=== PATIENT | female | born 1955 | race Caucasian/White ===

== ENCOUNTER → 2019-11-21 | Day surgery (SDC) | payer OTHER ==
[~2019-11-21] MED LIST: ALLOPURINOL300 MG PO; ASPIRIN; CLARITIN; DICLOFENAC; FENTANYL CITRATE/PF 100MCG/2 ML INJ ONE; FLUTICASONE P15.8 ML; FUROSEMIDE; FUROSEMIDE40 MG PO; HYDROXYZINE HCL25 MG PO; LEVOTHYROXINE; LISINOPRIL/HCTZ; METFORMIN; MIDAZOLAM HCL 2 MG/2 ML VIAL ONE; MODAFINIL200 MG PO; NEXIUM PO; OR PHACO EYE KIT ONE; POTASSIUM CHLO20 ME1 PO; PRAMIPEXOLE D0.25 MG PO; PRAVASTATIN; PREOP PHACO EYE KIT ONE; SERTRALINE HCL50 MG PO; SPIRONOLACTONE25 MG PO; SYNTHROID100 MCG PO
--- OUTSIDE RECORDS SUMMARY | 2019-11-21 09:29 | XMS REPORT ---
Author Author [facility] Address Unknown Phone Unavailable Care Team Providers Care Ivory Polisher Name Role Phone Unavailable Unavailable Problems This patient has no known problems. Allergies, Adverse Reactions, Alerts This patient has no known allergies or adverse reactions. Medications This patient has no known medications. Encounters Start Date/Time End Date/Time Encounter Type Admission Type Attending Clinicians Care Facility Care Department Encounter ID 2019-03-30 09:54:00 2019-03-30 09:54:00 Outpatient [id number] Results Test Description Test Time Test Comments Text Results Atomic Results Result Comments SCR MAMM BILATERAL SANDEEP CAD DIGITAL 2018-09-29 08:38:52 - SCR MAMM BILATERAL SANDEEP CAD DIGITALBILATERAL DIGITAL SCREENING MAMMOGRAM 3D/2D WITH CAD: 09/29/2018CLINICAL: Asymptomatic. Digital breast tomosynthesis was performed in addition to routine CC and MLO views. Current mammographic images were evaluated by either a Gigit M-Vu or a [employer] ImageChecker CAD (computer aided detection system). Comparison is made to exams dated 05/10/2017 mammogram, 2015 mammogram, 04/26/2015 mammogram, 04/23/2014 mammogram, and 04/21/2013 mammogram - [facility]-. There are scattered fibroglandular tissues in both breasts. There are benign calcifications and vascular calcification in both breasts. No suspicious mass, architectural distortion, malignant type calcification, or lymph node abnormality detected. Breast architecture is stable compared to prior exams.IMPRESSION: BENIGNThere is no mammographic evidence of malignancy. Resume annual screening mammography in one year. Aman Fiore M.D. rb/:09/29/2018 08:38:52 Hotel [facility] Dining Room Cashier: Shady STEIN, [facility]-FWletter sent: BIRADS 1-2 Normal Mammogram BI-RADS: 2 Benign
--- OUTSIDE RECORDS SUMMARY | 2019-11-21 09:30 | XMS REPORT ---
Author Author Admin, [place] Organization Unknown Address Unknown Phone Unavailable PROBLEMS Condition Status Date Provider Notes Chronic cough active Gregoria Burr on sertraline BMI 34.0-34.9 active Gregoria Burr Obesity active Gregoria Burr hospital follow up active Gregoria Burr Bitten by dog, subsequent encounter active Gregoria Burr DJD, lumbar spine active Gregoria Burr Osteopenia active Gregoria Burr Hypertension active Gregoria Burr Hyperlipidemia active Gregoria Burr Asthma active Gregoria Burr Vitamin D deficiency active Gregoria Burr HLA B27 antigen positive active Gregoria Burr JALEESA positive active Gregoria Burr Foot pain, chronic active Gregoria Burr Low potassium level active Gregoria Burr Gastric bypass active Gregoria Burr Sleep apnea active Gregoria Burr Narcolepsy active Gregoria Burr Acid reflux active Gregoria Burr Hypothyroid active Gregoria Burr Gout active Gregoria Burr Restless leg syndrome active Gregoria Burr Rheumatoid arthritis, chronic active Gregoria Burr Establish care or get acquainted visit active Gregoria Burr Neuropathy active Gregoria Burr Hypertension active Gregoria Burr CKD active Gregoria Burr Restless leg syndrome completed - Gregoria Burr Peripheral edema active Gregoria Burr ENCOUNTERS Date Type Provider Location Encounter Diagnosis - Ambulatory Encounter Gregoria Burr [facility] [place] - Ambulatory Encounter Gregoria Burr [facility] [place] - Ambulatory Encounter Peyton Extra Hours [facility] Services UNK - Ambulatory Encounter Peyton Extra Hours [facility] Services UNK - Ambulatory Encounter Peyton Extra Hours [facility] Services UNK - Ambulatory Encounter Gregoria Olivia [facility] [place] - Ambulatory Encounter [facility] Care Coordination Desktop Ananda Finch [facility] Contact Center UNK - Ambulatory Encounter Ananda Wetzel [facility] UNK - Ambulatory Encounter Gregoria Burr [employer] [facility] [place] - Ambulatory Encounter Gregoria Burr [facility] [place] - Ambulatory Encounter Gregoria Olivia [facility] Peripheral edemaRestless leg syndromeCKDHypertensionNeuropathyEstablish care or get acquainted visitRheumatoid arthritis, chronicRestless leg syndromeGoutHypothyroidAcid refluxNarcolepsySleep apneaGastric bypassLow potassium levelFoot pain, chronicANA positiveHLA B27 antigen positiveVitamin D deficiencyAsthmaHyperlipidemiaHypertensionOsteopeniaDJD, lumbar spineBitten by dog, subsequent encounterhospital follow upObesityBMI 34.0-34.9Chronic cough VITAL SIGNS No Information Available ALLERGIES Allergy Name Onset Date Reaction Criticality Status TINDAMAX High Criticality active MORPHINE High Criticality active CODEINE High Criticality active REASON FOR REFERRAL No Information Available RESULTS No Information Available HISTORY OF IMMUNIZATIONS Date Vaccine Dose Lot Number Status Shingrix IM [id number] completed Pneumovax 23 IM/SQ [id number] completed completed completed completed HISTORY OF MEDICATION USE Medication Instructions Dates Provider Comments [employer] DAKOTAH TEST IN VITRO STRIP use as directed Gregoria Burr [employer] DAKOTAH SYSTEM W/DEVICE KIT dispense 1 kit Gregoria Burr NYSTATIN 943958 UNIT/ML MOUTH/THROAT SUSPENSION 400,000 units of the oral suspension orally 4 times a day Gregoria Burr NEXIUM 40 MG ORAL CAPSULE DELAYED RELEASE 1 capsule daily as needed Gregoria Burr METRONIDAZOLE 500 MG ORAL TABLET 1 tab by mouth twice a day for 7 days Gregoria Burr SERTRALINE HCL 50 MG ORAL TABLET 1 tablet daily Gregoria Burr FLUCONAZOLE 150 MG ORAL TABLET 1 tablet once Gregoria Burr LINEZOLID 600 MG ORAL TABLET BID Gregoria Burr CEPHALEXIN 500 MG ORAL CAPSULE 1 cap by mouth QID times a day Gregoria Burr CELECOXIB 200 MG ORAL CAPSULE 1 tablet daily prn Gregoria Burr TRAMADOL-ACETAMINOPHEN 37.5-325 MG ORAL TABLET once daily prn Gregoria Burr CYCLOBENZAPRINE HCL 7.5 MG ORAL TABLET 1 tablet BID As Needed Gregoria Burr ADVAIR DISKUS 250-50 MCG/DOSE INHALATION AEROSOL POWDER BREATH ACTIVATED 1 inhalation BID Gregoria Burr PRAMIPEXOLE DIHYDROCHLORIDE 0.25 MG ORAL TABLET 1 tablet at 5p and 1 tablet at bedtime Gregoria Burr PANTOPRAZOLE SODIUM 40 MG ORAL TABLET DELAYED RELEASE 1 tablet daily Gregoria Burr MODAFINIL 200 MG ORAL TABLET 1 tablet BID Gregoria Burr FLUTICASONE PROPIONATE 50 MCG/ACT NASAL SUSPENSION 1-2 sprays once-BID Gregoria Burr HYDROXYZINE HCL 25 MG ORAL TABLET 2 pills 3x/day as needed Gregoria Burr ALLOPURINOL 300 MG ORAL TABLET 1 tablet daily Gregoria Burr POTASSIUM CHLORIDE ER 20 MEQ ORAL TABLET EXTENDED RELEASE 1 tablet once daily Gregoria Burr SPIRONOLACTONE 25 MG ORAL TABLET 1 tablet BID Gregoria Burr HYDROCHLOROTHIAZIDE 25 MG ORAL TABLET 1 tablet daily as needed Gregoria Burr FUROSEMIDE 20 MG ORAL TABLET 1 tablet at bedtime Gregoria Burr FUROSEMIDE 40 MG ORAL TABLET 1 tab daily Gregoria Burr SYNTHROID 100 MCG ORAL TABLET 1 by mouth every day Gregoria Burr SOCIAL HISTORY Date Observation Value Provider time of call 08/31/2019 4:52 PM Erica Finch time of call 08/30/2019 3:57 PM Amanda Wetzel social history E&M . Not homeless. Born in [facility]. City: [place]. Not employed. Unemployed. Sexual orientation: Heterosexual. Gender identity: Female. Sexually Active: No. Gregoria Burr " social history reviewed E&M reviewed today Gregoria Burr " drug use, illicit Never Charese Corwin " alcohol use, frequency holidays/special occasions only Charese Corwin " alcohol use Currently Charese Corwin " Occupation #1 Unemployed Charese Corwin " patient considered to be homeless No Charese Corwin " sexual orientation Heterosexual Charese Corwin " is there any chance that you could be ? No Charese Corwin " passive cigarette smoke exposure No Charese Corwin " smoking status never smoker Charese Corwin FUNCTIONAL STATUS No Information Available MENTAL STATUS Date Observation Value Provider assessment of judgment and insight E&M intact Gregoria Burr " mental status examination: orientation E&M oriented to time, place, and person Gregoria Burr " assessment of mood and affect E&M no depression, anxiety, or agitation Gregoria Burr " Generalized Anxiety Disorder Questionnaire - Question 1 3 Charese Corwin " Generalized Anxiety Disorder Questionnaire - Question 2 3 Charese Corwin MEDICAL EQUIPMENT No Information Available FAMILY HISTORY No Information Available INSURANCE PROVIDERS No Information Available ADVANCE DIRECTIVES No Information Available TREATMENT PLAN Date Name New Patient Comprehensive - [id number] HISTORY OF PROCEDURES No Information Available GOALS No Information Available HEALTH CONCERNS No Information Available
--- OUTSIDE RECORDS SUMMARY | 2019-11-21 09:30 | XMS REPORT ---
Author Author Admin, [place] Organization Unknown Address Unknown Phone Unavailable PROBLEMS [...] Provider Location Encounter Diagnosis - Ambulatory Encounter Ananda Olivia [facility] [place] - Ambulatory Encounter [facility] Care Coordination Hui Finch [facility] Contact [facility] UNK - Ambulatory Encounter Chelsyberenice Corwindarci [place] Wetzel [facility] UNK - Ambulatory Encounter Gregoria Burr [employer] [facility] [place] - Ambulatory Encounter Gregoria Burr [facility] [place] - Ambulatory Encounter Gregoria Malave [facility] Adult Medicine Peripheral edemaRestless leg syndromeCKDHypertensionNeuropathyEstablish care [...] Vaccine Dose Lot Number Status Shingrix IM [id number] completed Pneumovax 23 IM/SQ [id number] completed completed completed completed HISTORY OF MEDICATION USE Medication Instructions Dates Provider Comments METRONIDAZOLE 500 MG ORAL TABLET 1 tab [...] history E&M . Not homeless. Born in [facility]. City: [place]. Not employed. Unemployed. Sexual orientation: Heterosexual. Gender identity: Female. Sexually Active: No. Gregoria Burr " social history reviewed E&M reviewed today Gregoria Burr " drug use, illicit Never Ananda Olivia " alcohol use, frequency holidays/special occasions only Ananda Olivia " alcohol use Currently Ananda Corwin " Occupation #1 Unemployed Charese Corwin " patient considered to be homeless No Ananda Corwin " sexual orientation Heterosexual Ananda Corwin " is there any chance that you could be ? No Ananda Corwin " passive cigarette smoke exposure No Ananda Corwin " smoking status never smoker Ananda Corwin FUNCTIONAL STATUS No Information Available MENTAL [...] Anxiety Disorder Questionnaire - Question 2 3 Charberenice Corwin MEDICAL EQUIPMENT No Information Available FAMILY HISTORY No Information Available INSURANCE PROVIDERS No Information Available ADVANCE DIRECTIVES No Information Available TREATMENT PLAN Date Name New Patient Comprehensive - [id number] HISTORY OF PROCEDURES No Information Available GOALS No Information Available HEALTH CONCERNS No Information Available
--- OUTSIDE RECORDS SUMMARY | 2019-11-21 09:30 | XMS REPORT ---
Author Author Admin, [place] Organization Unknown Address Unknown Phone Unavailable PROBLEMS Condition Status Date Provider Notes Chronic cough active Gregoria Burr on sertraline BMI 34.0-34.9 active Gregoria Burr Obesity active Gregorai Burr hospital follow up active Gregoria Burr [...] Encounter Diagnosis - Ambulatory Encounter Gregoria Burr [facility] [place] [facility] [place] - Ambulatory Encounter Gregoria Valentinoberenice Corwin [facility] Peripheral edemaRestless leg syndromeCKDHypertensionNeuropathyEstablish care [...] Vaccine Dose Lot Number Status Shingrix IM [id number] completed Pneumovax 23 IM/SQ [id number] completed completed completed completed HISTORY OF MEDICATION [...] Burr SOCIAL HISTORY Date Observation Value Provider social history E&M . Not homeless. Born in [facility]. City: [place]. Not employed. Unemployed. Sexual orientation: Heterosexual. Gender [...] Anxiety Disorder Questionnaire - Question 1 3 Ananda Corwin " Generalized Anxiety Disorder Questionnaire - Question 2 3 Ananda Olivia MEDICAL EQUIPMENT No Information Available FAMILY HISTORY No Information Available INSURANCE PROVIDERS No Information Available ADVANCE DIRECTIVES No Information Available TREATMENT PLAN Date Name New Patient Comprehensive - [id number] HISTORY OF PROCEDURES No Information Available GOALS No Information Available HEALTH CONCERNS No Information Available
--- OUTSIDE RECORDS SUMMARY | 2019-11-21 09:30 | XMS REPORT ---
Author Author Admin, [place] Organization Unknown Address Unknown Phone Unavailable PROBLEMS [...] Encounter Diagnosis - Ambulatory Encounter Gregoria Burr [employer] [facility] [place] - Ambulatory Encounter Gregoria Burr [facility] [place] - Ambulatory Encounter Gregoria Olivia [facility] Peripheral edemaRestless leg syndromeCKDHypertensionNeuropathyEstablish care [...] Vaccine Dose Lot Number Status Shingrix IM [id number] completed Pneumovax 23 IM/SQ [id number] completed completed completed completed HISTORY OF MEDICATION [...] history E&M . Not homeless. Born in [facility]. City: [place]. Not employed. Unemployed. Sexual orientation: Heterosexual. Gender [...] Charese Corwin " smoking status never smoker Aannda Olivia FUNCTIONAL STATUS No Information Available MENTAL STATUS Date Observation Value Provider assessment of judgment and insight E&M intact Gregoria Burr " mental status examination: orientation E&M oriented to time, place, and person Gregoria Burr " assessment of mood and affect E&M no depression, anxiety, or agitation Gregoria Burr " Generalized Anxiety Disorder Questionnaire - Question 1 3 Ananda Olivia " Generalized Anxiety Disorder Questionnaire - Question 2 3 Chelsyberenice Hernandezry MEDICAL EQUIPMENT No Information Available FAMILY HISTORY No Information Available INSURANCE PROVIDERS No Information Available ADVANCE DIRECTIVES No Information Available TREATMENT PLAN Date Name New Patient Comprehensive - [id number] HISTORY OF PROCEDURES No Information Available GOALS No Information Available HEALTH CONCERNS No Information Available
--- OUTSIDE RECORDS SUMMARY | 2019-11-21 09:30 | XMS REPORT ---
Author Author Admin, [place] Organization Unknown Address Unknown Phone Unavailable PROBLEMS [...] Provider Location Encounter Diagnosis - Ambulatory Encounter Peyton Extra Hours [facility] Services UNK - Ambulatory Encounter [facility]ey[facility] Extra Hours [facility] Services UNK - Ambulatory Encounter [facility] UNK - Ambulatory Encounter Gregoria Olivia [facility] [place] - Ambulatory En[place] [facility] [place] Coord[place] Desktop Ananda Finch [facility] Contact Center UNK - Ambulatory Encounter Ananda Wetzel [facility] UNK - [facility] En[facility] Gregoria Burr [facility] [place] - Ambulatory Encounter Gregoria Olivia [facility] Peripheral edemaRestless leg syndromeCKDHypertensionNeuropathyEstablish care [...] Vaccine Dose Lot Number Status Shingrix IM [id number] completed Pneumovax 23 IM/SQ [id number] completed completed completed completed HISTORY OF MEDICATION USE Medication Instructions Dates Provider Comments [employer] DAKOTAH TEST IN VITRO STRIP use as directed Gregoria Burr [employer] DAKOTAH SYSTEM W/DEVICE KIT dispense 1 kit Gregoria Burr NYSTATIN 135200 UNIT/ML MOUTH/THROAT SUSPENSION 03789 units By Mouth q6h prn Gregoria Burr NEXIUM 40 MG ORAL CAPSULE [...] 50 MCG/ACT NASAL SUSPENSION 1-2 sprays once-BID Gregorai Burr HYDROXYZINE HCL 25 MG ORAL TABLET [...] homeless. Born in [facility]. City: [place]. Not employed. Unemployed. Sexual orientation: Heterosexual. Gender [...] PLAN Date Name New Patient Comprehensive - [id number] HISTORY OF PROCEDURES No Information Available GOALS No Information Available HEALTH CONCERNS No Information Available
--- OUTSIDE RECORDS SUMMARY | 2019-11-21 09:30 | XMS REPORT ---
Author Author Admin, [place] Organization Unknown Address Unknown Phone Unavailable PROBLEMS [...] Diagnosis - Ambulatory Encounter Peyton Extra Hours [facility] UNK - Ambulatory Encounter Peyton Extra Hours [facility] UNK - Ambulatory Encounter [facility]ey[facility] Extra Hours [facility] UNK - Ambulatory Encounter Gregoria Olivia [facility] UNK - Ambulatory Encounter [facility] Care Coordination Desktop Erica Finch [facility] Contact Center UNK - Ambulatory Encounter Ananda Wetzel [facility] UNK - Ambulatory Encounter Gregoria Burr [employer] [facility] Adult Medicine UNK - Ambulatory Encounter Gregoria Burr [facility] UNK - Ambulatory Encounter Gregoria Olivia [facility] Peripheral edemaRestless leg syndromeCKDHypertensionNeuropathyEstablish care [...] Vaccine Dose Lot Number Status Shingrix IM [id number] completed Pneumovax 23 IM/SQ [id number] completed completed completed completed HISTORY OF MEDICATION USE Medication Instructions Dates Provider Comments [employer] DAKOTAH TEST IN VITRO STRIP use as directed Gregoria Burr [employer] DAKOTAH SYSTEM W/DEVICE KIT dispense 1 kit Gregoria Burr NYSTATIN 263663 UNIT/ML MOUTH/THROAT SUSPENSION 60881 units By Mouth q6h prn Gregoria Burr [...] Provider time of call 08/31/2019 4:52 PM Ericakimmy Finch time of call 08/30/2019 3:57 PM Amanda Wetzel social history E&M . Not homeless. Born in [facility]. City: [place]. Not employed. Unemployed. Sexual orientation: Heterosexual. Gender [...] PLAN Date Name New Patient Comprehensive - [id number] HISTORY OF PROCEDURES No Information Available GOALS No Information Available HEALTH CONCERNS No Information Available
--- OUTSIDE RECORDS SUMMARY | 2019-11-21 09:31 | XMS REPORT ---
Author Author Admin, [place] Organization Unknown Address Unknown Phone Unavailable PROBLEMS Condition Status Date Provider Notes HSV active Gregoria Burr Vaginal discharge active Gregoria Burr Screening for anemia active Gregoria Burr Screening for lipid disorder active Gregoria Burr Screening, diabetes mellitus active Gregoria Burr Screening for breast cancer active Gregoria Burr Screening for breast cancer active Gregoria Burr Screening, cervical cancer active Gregoria Burr Well adult active Gregoria Burr Chronic cough active Gregoria Burr on sertraline [...] Encounter Diagnosis - Ambulatory Encounter Gregoria Burr [facility] [place] Medicine UNK - Ambulatory Encounter Gregoria Burr [facility] Adult Medicine UNK - Ambulatory Encounter Gregoria Burr [facility] Adult Medicine UNK - Ambulatory Encounter Gregoria Malave Corwin [facility] [place] Medicine Screening, diabetes mellitusScreening for lipid disorderScreening for anemiaVaginal dischargeHSV - Ambulatory Encounter Gregoria Malave Corwin [facility] Adult Medicine Well adultScreening, cervical cancerScreening for breast cancerScreening for breast cancer - Ambulatory Encounter Gregoria Burr [facility] Adult Medicine UNK - Ambulatory Encounter Gregroia Burr [facility] Adult Medicine UNK - Ambulatory Encounter Gregoria Burr [facility] Adult Medicine UNK - Ambulatory Encounter Gregoria Burr [facility] UNK - Ambulatory Encounter Gregoria Burr [facility] Adult Medicine UNK - Ambulatory Encounter Gregoria Burr [facility] UNK - Ambulatory Encounter Gregoria Burr [facility] UNK - Ambulatory Encounter Gregoria Burr [facility] Adult Medicine UNK - Ambulatory Encounter Gregoria Burr [facility] Adult Medicine UNK - Ambulatory Encounter Peyton Extra Hours [facility] UNK - Ambulatory Encounter [place]ey[place] Extra Hours [facility] UNK - Ambulatory Encounter [place]ey[place] Extra Hours [facility] UNK - Ambulatory Encounter Gregoria Olivia [facility] Adult Medicine UNK - Ambulatory Encounter [facility] Care Coordination Desestephaniaop Ananda Finch [facility] UNK - Ambulatory Encounter Ananda Wetzel [facility] UNK - Ambulatory Encounter Gregoria Burr [facility] Adult Medicine UNK - Ambulatory Encounter Gregoria Burr [facility] Adult Medicine UNK - Ambulatory Encounter Gregoria Malave Corwin [facility] Adult Medicine Peripheral edemaRestless leg syndromeCKDHypertensionNeuropathyEstablish care [...] CODEINE High Criticality active REASON FOR REFERRAL Start Date - End Date Service - Mammogram - Screening RESULTS Date Observation Value Provider Reference Range Interpretation Location uric acid, serum 4.2 mg/dL [facility] 2.5-7.1 " thyroid stimulating hormone, serum 2.890 u[iU]/mL [facility] 0.450-4.500 " vitamin D 25-hydroxy, serum 29.5 ng/mL [facility] 30.0-100.0 Low " hemoglobin A1C, blood, as % of total hemoglobin 5.7 % [facility] 4.8-5.6 High " LDL cholesterol, serum 125 mg/dL [facility] 0-99 High " very low density lipoproteins 9 mg/dL [facility] 5-40 " HDL cholesterol, serum 109 mg/dL [facility] >39 " triglyceride, serum, fasting 44 mg/dL [facility] 0-149 " cholesterol, serum 243 mg/dL [facility] 100-199 High " alanine aminotransferase (SGPT), serum 20 1/L [facility] 0-32 " aspartate aminotransferase (SGOT), serum 25 1/L [facility] 0-40 " alkaline phosphatase, serum 167 1/L [facility] 39-117 High " bilirubin, serum, total 0.4 mg/dL [facility] 0.0-1.2 " albumin/globulin ratio, serum 1.7 [facility] 1.2-2.2 " globulin, serum 2.6 [facility] 1.5-4.5 " albumin, serum 4.3 g/dL [facility] 3.6-4.8 " protein, total, serum 6.9 g/dL [facility] 6.0-8.5 " calcium, serum 9.4 mg/dL [facility] 8.7-10.3 " carbon dioxide, venous blood 23 mmol/L [facility] 20-29 " chloride, serum 99 mmol/L [facility] 96-106 " potassium, serum 4.3 mmol/L [facility] 3.5-5.2 " sodium, serum 141 mmol/L [facility] 134-144 " urea nitrogen/creatinine ratio, serum 22 [facility] 12-28 " eGFR if 72 mL/min/((173/100).m2) [facility] >59 " Estimated Glomerular Filtration Rate (calc) 63 mL/min/((173/100).m2) [facility] >59 " creatinine, serum 0.97 mg/dL [facility] 0.57-1.00 " urea nitrogen, blood 21 mg/dL [facility] 8-27 " blood glucose, random 106 mg/dL [facility] 65-99 High " immature granulocytes, percentage of total cells, blood 0 % [facility] Not Estab. " basophil count, absolute 0.0 x10E3/uL [facility] 0.0-0.2 " Eosinophil Absolute Count 0.2 X10E3/UL [facility] 0.0-0.4 " monocyte count, blood, automated 0.3 X10E3/UL [facility] 0.1-0.9 " lymphocyte count, blood, automated 1.5 X10E3/UL [facility] 0.7-3.1 " Absolute Neutrophils 2.5 X10E3/UL [facility] 1.4-7.0 " basophils as percent of blood leukocytes 0 % [facility] Not Estab. " eosinophils as percent of blood leukocytes 4 % [facility] Not Estab. " monocytes as percent of blood leukocytes 6 % [facility] Not Estab. " lymphocytes as percent of blood leukocytes 33 % [facility] Not Estab. " neutrophils as percent of blood leukocytes 57 % [facility] Not Estab. " platelet count 220 X10E3/UL [facility] 150-450 " red blood cell distribution width 13.7 % [facility] 12.3-15.4 " mean corpuscular hemoglobin concentration, RBC 33.8 G/DL [facility] 31.5-35.7 " mean corpuscular hemoglobin, RBC 31.2 pg [facility] 26.6-33.0 " mean corpuscular volume, RBC 92 fL [facility] 79-97 " hematocrit, blood 38.2 % [facility] 34.0-46.6 " hemoglobin, blood 12.9 g/dL [facility] 11.1-15.9 " erythrocyte (RBC) count 4.14 X10E6/UL [facility] 3.77-5.28 " leukocyte count, blood 4.5 X10E3/UL [facility] 3.4-10.8 HISTORY OF IMMUNIZATIONS Date Vaccine Dose Lot Number Status Shingrix IM [id number] completed Pneumovax 23 IM/SQ [id number] completed completed completed completed HISTORY OF MEDICATION USE Medication Instructions Dates Provider Comments ACYCLOVIR 5 % EXTERNAL CREAM apply to affected area twice or three times a day Gregoria Burr [employer] DAKOTAH TEST IN VITRO STRIP use as directed Gregoria Burr [employer] PRECISION DAKOTAH SYSTEM W/DEVICE KIT dispense 1 kit Gregoria Burr NYSTATIN 588034 UNIT/ML MOUTH/THROAT SUSPENSION 400,000 units of the [...] CAPSULE 1 tablet daily prn Gregoria Burr TRAMADOL HCL 50 MG ORAL TABLET 1 tab every 6-8 hours as needed for pain Gregoria Burr CYCLOBENZAPRINE HCL 7.5 MG ORAL [...] Burr SOCIAL HISTORY Date Observation Value Provider " drug use, illicit Never Charese Corwin " alcohol use Currently Charese Corwin " sexual orientation Heterosexual Charese Corwin " is there any chance that you could be ? No Charese Corwin " passive cigarette smoke exposure No Charese Corwin " smoking status never smoker Charese Corwin " social history E&M . Not homeless. Born in [facility]. City: [place]. Not employed. Unemployed. Sexual orientation: Heterosexual. Gender identity: Female. Sexually Active: No. Gregoria Burr " social history reviewed E&M reviewed today Gregoria Burr time of call 08/31/2019 4:52 PM Erica Finch time of call 08/30/2019 3:57 PM Amanda Wetzel social history E&M . Not homeless. Born in [facility]. City: [place]. Not employed. Unemployed. Sexual orientation: Heterosexual. Gender [...] that you could be ? No Ananda Olivia " passive cigarette smoke exposure No Ananda Olivia " smoking status never smoker Ananda Olivia FUNCTIONAL STATUS No Information Available MENTAL STATUS Date Observation Value Provider Generalized Anxiety Disorder Questionnaire - Question 2 0 Ananda Olivia " Generalized Anxiety Disorder Questionnaire - Question 1 0 Ananda Olivia " assessment of judgment and insight E&M intact Gregoria Leno " mental status examination: orientation E&M oriented to time, place, and person Gregoria Burr " assessment of mood and affect E&M no depression, anxiety, or agitation Gregoria Burr assessment of judgment and insight E&M intact Gregoria Jean Baptisteh " mental status examination: orientation E&M oriented to time, place, and person Gregoria Burr " assessment of mood and affect E&M no depression, anxiety, or agitation Gregoria Jean Baptisteh " Generalized Anxiety Disorder Questionnaire - Question 1 3 Ananda Olivia " Generalized Anxiety Disorder Questionnaire - Question 2 3 Ananda Olivia MEDICAL EQUIPMENT No Information Available FAMILY HISTORY No Information Available INSURANCE PROVIDERS Payer name Policy type / Coverage type Covered democrat ID Sliding Fee - Cat 1 [employer] insurance [employer] [id number] ADVANCE DIRECTIVES No Information Available TREATMENT PLAN Date Name NuSwab Vaginitis Plus (VG+) Uric Acid, Serum Pap w/HPV w rflx (30+) TSH Rfx on Abnormal to Free T4 Vitamin D, 25-Hydroxy Hemoglobin A1c Lipid Panel Comp. Metabolic Panel (14) CBC With Differential/Platelet - Est Patient Well Exam (40 - 64 Yrs) - [id number] New Patient Comprehensive - 78097 HISTORY OF PROCEDURES No Information Available GOALS No Information Available HEALTH CONCERNS No Information Available
--- OUTSIDE RECORDS SUMMARY | 2019-11-21 09:31 | XMS REPORT ---
Author Author Admin, [place] Organization Unknown Address Unknown Phone Unavailable PROBLEMS [...] Encounter Diagnosis - Ambulatory Encounter Gregoria Burr [facility] Adult Medicine UNK - Ambulatory Encounter Gregoria Malave Corwin [facility] Adult Medicine Screening, diabetes mellitusScreening for lipid disorderScreening for anemiaVaginal dischargeHSV - Ambulatory Encounter Gregoria Malave Corwin [facility] Adult Medicine Well adultScreening, cervical cancerScreening for breast cancerScreening for breast cancer - Ambulatory Encounter Gregoria Burr [facility] Adult Medicine UNK - Ambulatory Encounter Gregoria Burr [facility] Adult Medicine UNK - Ambulatory Encounter Gregoria Burr [facility] Adult Medicine UNK - Ambulatory Encounter Gregoria Burr [facility] UNK - Ambulatory Encounter Gregoria Burr [facility] Adult Medicine UNK - Ambulatory Encounter Gregoria Burr [facility] UNK - Ambulatory Encounter Gregoria Burr [facility] UNK - Ambulatory Encounter Gregoria Burr [facility] Adult Medicine UNK - Ambulatory Encounter Gregoria Burr [facility] Adult Medicine UNK - Ambulatory Encounter Peyton Extra Hours [facility] Services UNK - Ambulatory Encounter Peyton Extra Hours [facility] UNK - Ambulatory Encounter Peyton Extra Hours [facility] UNK - Ambulatory Encounter Gregoria Olivia [facility] Adult Medicine UNK - Ambulatory Encounter [facility] Care Coordination Desdonis Finch [facility] Contact Center UNK - Ambulatory Encounter Ananda Wetzel [facility] Services UNK - Ambulatory Encounter [facility] UNK - Ambulatory Encounter Gregoria Burr [facility] Adult Medicine UNK - Ambulatory Encounter Gregoria Olivia [facility] Adult Medicine Peripheral edemaRestless leg syndromeCKDHypertensionNeuropathyEstablish care [...] Date Service - Mammogram - Screening RESULTS No Information Available HISTORY OF IMMUNIZATIONS Date Vaccine Dose Lot Number Status Shingrix IM [id number] completed Pneumovax 23 IM/SQ [id number] completed completed completed completed HISTORY OF MEDICATION USE Medication Instructions Dates Provider Comments ACYCLOVIR 5 % EXTERNAL CREAM apply to affected area twice or three times a day Gregoria Burr re3D PRECISION DAKOTAH TEST IN VITRO STRIP use as directed Gregoria Burr re3D PRECISION DAKOTAH SYSTEM W/DEVICE KIT dispense 1 kit Gregoria Burr NYSTATIN [id number] UNIT/ML MOUTH/THROAT SUSPENSION 400,000 units of the [...] history E&M . Not homeless. Born in [facility]. City: [place]. Not employed. Unemployed. Sexual orientation: Heterosexual. Gender identity: Female. Sexually Active: No. Gregoria Burr " social history reviewed E&M reviewed today Gregoria Burr time of call 08/31/2019 4:52 PM Erica Finch time of call 08/30/2019 3:57 PM Amanda Wetzel social history E&M . Not homeless. Born in [facility]. City: [place]. Not employed. Unemployed. Sexual orientation: Heterosexual. Gender [...] No Charese Corwin " sexual orientation Heterosexual Ananda Olivia " is there any chance that you [...] depression, anxiety, or agitation Gregoria Jean Baptisteh assessment of judgment and insight E&M intact Gregoria Jean Baptisteh " mental status examination: orientation E&M oriented to time, place, and person Gregoria Leno " assessment of mood and affect E&M [...] democrat ID Sliding Fee - Cat 1 [employer] [id number] ADVANCE DIRECTIVES No Information Available TREATMENT PLAN Date Name NuSwab Vaginitis Plus (VG+) Uric Acid, Serum Pap w/HPV w rflx 16/45 (30+) TSH Rfx on Abnormal to Free T4 Vitamin D, 25-Hydroxy Hemoglobin A1c Lipid Panel Comp. Metabolic Panel (14) CBC With Differential/Platelet - Est Patient Well Exam (40 - 64 Yrs) - [id number] New Patient Comprehensive - [id number] HISTORY OF PROCEDURES No Information Available GOALS No Information Available HEALTH CONCERNS No Information Available
--- OUTSIDE RECORDS SUMMARY | 2019-11-21 09:31 | XMS REPORT ---
Author Author Admin, [place] Organization Unknown Address Unknown Phone Unavailable PROBLEMS Condition Status Date Provider Notes Depression active Keely Villegas Pre-op exam active Keely Ericpard HSV active Gregoria Burr Vaginal discharge active [...] Provider Location Encounter Diagnosis - Ambulatory Encounter Jeevan Eugene [facility] - Ambulatory Encounter Keely Read Keely Nelly [facility] [place] - Ambulatory Encounter Keely Ericpard Keely Ericveronica [place] [facility] Pre-op examDepression - Ambulatory Encounter Gregoria Burr [facility] [place] - Ambulatory Encounter Gregoria Burr [facility] UNK - Ambulatory Encounter Gregoria Campbell [facility] [place] [facility] Ambulatory Encounter Gregoria Burr [facility] UNK - Ambulatory Encounter Gregoria Burr [facility] UNK [facility] Ambulatory Encounter Gregoria Burr [facility] [place] - Ambulatory Encounter Gregoria Olivia [facility] Screening, diabetes mellitusScreening for lipid disorderScreening for anemiaVaginal dischargeHSV - Ambulatory Encounter Gregoria Olivia [facility] Well adultScreening, cervical cancerScreening for breast cancerScreening for breast cancer - Ambulatory Encounter Gregoria Burr [facility] UNK - Ambulatory Encounter Gregoria Burr [facility] UNK - Ambulatory Encounter Gregoria Burr [facility] UNK - Ambulatory Encounter Gregoria Burr [facility] UNK - Ambulatory Encounter Gregoria Burr [facility] UNK - Ambulatory Encounter Gregoria Burr [facility] UNK - Ambulatory Encounter Gregoria Burr [facility] UNK - Ambulatory Encounter Gregoria Burr [facility] UNK - Ambulatory Encounter Gregoria Burr [facility] UNK - Ambulatory Encounter Peyton [facility] [facility] - [facility]ulatory En[facility] [facility] - Ambulatory Encounter Gregoria Olivia [facility] UNK - Ambulatory Encounter LM Care Coordination Desktop Ananda Finch [facility] UNK - Ambulatory [facility] Gregoria Burr [facility] UN - Ambulatory Encounter Gregoria Burr [facility] UNK - Ambulatory Encounter Gregoria Olivia [facility] Peripheral edemaRestless leg syndromeCKDHypertensionNeuropathyEstablish care or get acquainted visitRheumatoid arthritis, chronicRestless leg syndromeGoutHypothyroidAcid refluxNarcolepsySleep apneaGastric bypassLow potassium levelFoot pain, chronicANA positiveHLA B27 antigen positiveVitamin D deficiencyAsthmaHyperlipidemiaHypertensionOsteopeniaDJD, lumbar spineBitten by dog, subsequent encounterhospital follow upObesityBMI 34.0-34.9Chronic cough VITAL SIGNS Date Observation Value Provider method used to obtain blood pressure automatic Co Lorie Hayes " temperature site oral Co Lorie Hayes " Blood Pressure Position 01 sitting Co Lorie Hayes " blood pressure, site #1 right arm Co Lorie Hayes " oxygen saturation, oximetry 95 % Co Lorie Hayes " blood pressure, diastolic 75 mm[Hg] Co Lorie Hayes " blood pressure, systolic 118 mm[Hg] Co Lorie Hayes " pulse rate E&M 80 /min Co Lorie Hayes " temperature E&M 98.4 [degF] Co Lorie Hayes " respiratory rate E&M 18 /min Co Lorie Hayes " weight E&M 230 lbs. Co Lorie Hayes " weight in kilograms E&M 104.55 kg Co Lorie Hayes " height E&M 67 [in_i] Co Lorie Hayes " height in centimeters E&M 170.18 cm Co Lorie Hayes oxygen saturation, oximetry 96 % Ananda Corwin " blood pressure, diastolic 83 mm[Hg] Charese Corwin " blood pressure, systolic 118 mm[Hg] Charese Corwin " respiratory rate E&M 18 /min Charese Corwin " pulse rate E&M 87 /min Charese Corwin " temperature E&M 98.1 [degF] Charberenice Corwin " weight E&M 218.60 lbs. Gregoria Leno " weight in kilograms E&M 99.36 kg Gregoria Leno " method used to obtain blood pressure automatic Ananda Corwin " Blood Pressure Position 01 sitting Charberenice Corwin " blood pressure, site #1 left arm Charberenice Corwin " temperature site oral Charberenice Corwin " height E&M 67 [in_i] Charberenice Corwin " height in centimeters E&M 170.18 cm Ananda Corwin height E&M 67 [in_i] Charberenice Corwin " height in centimeters E&M 170.18 cm Charberenice Corwin " temperature site oral Ananda Corwin " oxygen saturation, oximetry 98 % Ananda Corwin " method used to obtain blood pressure automatic Chelsyese Corwin " Blood Pressure Position 01 sitting Charberenice Corwin " blood pressure, site #1 left arm Charberenice Corwin " blood pressure, diastolic 67 mm[Hg] Ananda Corwin " blood pressure, systolic 124 mm[Hg] Charberenice Corwin " respiratory rate E&M 18 /min Ananda Corwin " pulse rate E&M 77 /min Ananda Corwin " temperature E&M 98.1 [degF] Charberenice Corwin " weight E&M 222 lbs. Ananda Corwin " weight in kilograms E&M 100.91 kg Ananda Corwin ALLERGIES Allergy Name Onset Date Reaction Criticality Status TINDAMAX High Criticality active MORPHINE High Criticality active CODEINE High Criticality active REASON FOR REFERRAL Start Date - End Date Service - Mammogram - Screening RESULTS Date Observation Value Provider Reference Range Interpretation Location Neisseria gonorrhoeae DNA probe Negative [facility] Negative " chlamydia DNA probe Negative [facility] Negative " trichomonas vaginalis, urine Negative [facility] Negative uric acid, serum 4.2 mg/dL [facility] 2.5-7.1 [...] Vaccine Dose Lot Number Status Shingrix IM [id number] completed Pneumovax 23 IM/SQ [id number] completed completed completed completed HISTORY OF MEDICATION USE Medication Instructions Dates Provider Comments ACYCLOVIR 5 % EXTERNAL CREAM apply to affected area twice or three times a day Gregoria Burr [place] TEST IN VITRO STRIP use as directed Gregoria Burr [employer] DAKOTAH SYSTEM W/DEVICE KIT dispense 1 kit Gregoria Burr [facility] [id number] UNIT/ML MOUTH/THROAT SUSPENSION 400,000 units of the [...] HISTORY Date Observation Value Provider social history reviewed E&M reviewed today Jeevan Eugene" social history E&M . , was 5 years. Single since 1979. Pt had 1 son, in 1999 (23 years old). Pt was adopted, recently discovered biological family. Adoptive mother , adoptive father in penitentiary (estranged). One adoptive brother - close. Not homeless. Born in [facility]. City: [place]. State: [place]. Pt lives alone in house in [facility]. Grew up in [place] area. Not employed. Unemployed. Highest education level: some college. Unemployed since 08/2018. 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 Sex at : Female. Sexual orientation: Heterosexual. Gender identity: Female. Gender of partner(s): Male. Sexually Active: No. Single. Not sexually active. 4 dogs. Drives. Taoist. Enjoys [employer] projects, volunteering at [employer] Jeevan Eugene " drug use, illicit Never Jeevan Eugene " alcohol use, frequency holidays/special occasions only Jeevan Eugene " alcohol use Currently Jeevan Eugene " smoking status never smoker Jeevan Eugene " sex at Female Jeevan Eugene " social history - sexual practice Single. Not sexually active. Jeevan Eugene" family support , was 5 years. Single since 1979. Pt had 1 son, in 1999 (23 years old). Pt was adopted, recently discovered biological family. Adoptive mother , adoptive father in penitentiary (estranged). One adoptive brother - close. Jeevan Eugene" home/family situation, assessment Pt lives alone in house in [facility]. Grew up in [place] area. Jeevan Eugene drug use, illicit Never Co Lorie Hayes " alcohol use Currently Co Lorie Hayes " social history E&M . Not homeless. Born in [place]. City: [place]. Not employed. Unemployed. Sexual orientation: Heterosexual. Gender identity: Female. Sexually Active: No. Co Lorie Grayxyasmin " social history reviewed E&M reviewed today Co Lorie Hayes " sexual orientation Heterosexual Co Lorie Moxey " is there any chance that you could be ? No Co Lorie Castellanoxyasmin " passive cigarette smoke exposure No Co Lorie Castellanoxyasmin " smoking status never smoker Co Lorie Hayes " Exercise Program Referral T Osmin Hayes " Weight Management Counseling Provided T Osmin Hayes " Nutrition intervention T Osmin Hayes " drug use, illicit Never Charese Corwin " alcohol use Currently Charese Corwin " sexual orientation Heterosexual Charese Corwin " is there any chance that you could be ? No Charese Corwin " passive cigarette smoke exposure No Charese Corwin " smoking status never smoker Charese Corwin " social history E&M . Not homeless. Born in [facility]. City: [place]. Not employed. Unemployed. Sexual orientation: Heterosexual. Gender identity: Female. Sexually Active: No. Gregoria Burr " social history reviewed E&M reviewed today Gregoria Burr time of call 08/31/2019 4:52 PM Erica Finch time of call 08/30/2019 3:57 PM Amanda Wetzel social history E&M . Not homeless. Born in [facility]. City: [place]. Not employed. Unemployed. Sexual orientation: Heterosexual. Gender identity: Female. Sexually Active: No. Gregoria Leno " social history reviewed E&M reviewed today [...] Available MENTAL STATUS Date Observation Value Provider mental status assessment, judgment juan Eugene " insight (mental status exam) juan Eugene " Mental Status Exam: intelligence adequate fund of information, intact memory processes, oriented to person, oriented to place, oriented to time, oriented to situation, oriented to reality Jeevan Eugene " thought content (mental status exam) (E&M) issac Eugene " mental status assessment, process able to abstract, goal-directed, logical Jeevan Eugene" mental status assessment, sensorium alert, attentive, clear Jeevan Eugene" affect (mental status exam) congruent, euthymic, normal intensity, normal range Jeevan Eugene" mood (mental status exam) pleasant, depressed Jeevan Eugene " mental status assessment, speech activity normal flow, normal pace, normal pressure, normal rate, normal tone, normal volume, spontaneous Jeevan Eugene " mental status assessment, motor activity normal gait, normal posture Jeevan Eugene " behavior (mental status exam) appropriate, candid, cooperative, good eye contact, polite, responsive Jeevan Eugene" mental appearance (mental status exam) adequate hygiene, appropriate dress, looks like stated age, neat Jeevan Eugene " delusion No Jeevan Eugene " hallucinations No Jeevan Eugene " If any problems checked, how difficult have these problems made it for you to do your work, take care of things at home, or get along with other people (GAD7, question 8) 3 Jeevan Eugene " Generalized Anxiety Disorder Questionnaire - Question 7 2 Jeevan Eugene " Generalized Anxiety Disorder Questionnaire - Question 6 3 Jeevan Eugene " Generalized Anxiety Disorder Questionnaire - Question 5 3 Jeevan Eugene " Generalized Anxiety Disorder Questionnaire - Question 4 1 Jeevan Eugene " Generalized Anxiety Disorder Questionnaire - Question 3 3 Jeevan Eugene " Generalized Anxiety Disorder Questionnaire - Question 2 3 Jeevan Eugene " Generalized Anxiety Disorder Questionnaire - Question 1 3 Jeevan Eugene Generalized Anxiety Disorder Questionnaire - Question 2 0 Co Lorie Hayes " Generalized Anxiety Disorder Questionnaire - Question 1 0 Co Lorie Hayes Generalized Anxiety Disorder Questionnaire - Question 2 0 Ananda Olivia " Generalized Anxiety Disorder Questionnaire - Question 1 0 Ananda Olivia " assessment of judgment and insight E&M intact Gregoria Jean Baptisteh " mental status examination: orientation E&M oriented to time, place, and person Gregoria Jean Baptisteh " assessment of mood and affect E&M no depression, anxiety, or agitation Gregoria Burr assessment of judgment and insight E&M intact Gregoria Jean Baptisteh " mental status examination: orientation E&M oriented to time, place, and person Gregoria Jean Baptisteh " assessment of mood and affect E&M no depression, anxiety, or agitation Gregoria Burr " Generalized Anxiety Disorder Questionnaire - Question 1 3 Ananda Olivia " Generalized Anxiety Disorder Questionnaire - Question 2 3 Ananda Olivia MEDICAL EQUIPMENT No Information Available FAMILY HISTORY No Information Available INSURANCE PROVIDERS Payer name Policy type / Coverage type Covered libertarian ID Sliding Fee - Cat 1 Commercial insurance company [id number] ADVANCE DIRECTIVES No Information Available TREATMENT PLAN Date Name CBC With Differential/Platelet NuSwab Vaginitis Plus (VG+) Uric Acid, Serum Pap w/HPV w rflx /45 (30+) TSH Rfx on Abnormal to Free T4 Vitamin D, 25-Hydroxy Hemoglobin A1c Lipid Panel Comp. Metabolic Panel (14) CBC With Differential/Platelet - Behavioral Health - Therapy Diagnostic evaluation (no medical) - 63394 IB Assessment - Stitch Wheeler IB Assessment - Stitch Wheeler Diagnostic evaluation (no medical) - 00391 EKG - 12 Leads Tracing only w/o Interpretation and report Integrated Behavioral Health Assessment (IBH) Est Patient Well Exam (40 - 64 Yrs) - 46749 New Patient Comprehensive - 17015 HISTORY OF PROCEDURES Procedure Date Procedure Name Provider Procedure Notes Status Diagnostic evaluation (no medical) - 60744 Jeevan Eugene completed [facility] Assessment - Stitch Wheeler Jeevan Eugene completed IB Assessment - Stitch Wheeler Jeevan Eugene completed Diagnostic evaluation (no medical) - 57834 Jeevan Eugene completed EKG - 12 Leads Tracing only w/o Interpretation and report Keely Read completed GOALS No Information Available HEALTH CONCERNS No Information Available
--- OUTSIDE RECORDS SUMMARY | 2019-11-21 09:31 | XMS REPORT ---
Author Author Admin, [place] Organization Unknown Address Unknown Phone Unavailable PROBLEMS [...] Provider Location Encounter Diagnosis - Ambulatory Encounter Keely Ericveronica Villegas [facility] Adult Medicine UNK - Ambulatory Encounter Jeevan Eugene [facility] Behavioral Health UNK - Ambulatory Encounter Keely Ericpard Keely Nelly [facility] Adult Medicine UNK - Ambulatory Encounter Keely Ericpard Keely Ericveronica [place] Hayes [facility] Adult Medicine Pre-op examDepression - Ambulatory Encounter Gregoria Burr [facility] Adult Medicine UNK - Ambulatory Encounter Gregoria Burr [facility] Adult Medicine UNK - Ambulatory Encounter Gregoria Campbell MedAdherchristopher [facility] Adult Medicine UNK - Ambulatory Encounter Gregoria Burr [facility] Adult Medicine UNK - Ambulatory Encounter Gregoria Burr [facility] Adult Medicine UNK - Ambulatory Encounter Gregoria Burr [facility] Adult Medicine UNK - Ambulatory Encounter Gregoria Olivia [facility] Adult Medicine Screening, diabetes mellitusScreening for lipid disorderScreening for anemiaVaginal dischargeHSV - Ambulatory Encounter Gregoria Olivia [facility] Adult Medicine Well adultScreening, cervical cancerScreening for breast cancerScreening for breast cancer - Ambulatory Encounter Gregoria Burr [facility] Adult Medicine UNK - Ambulatory Encounter Gregoria Burr [facility] Adult Medicine UNK - Ambulatory Encounter Gregoria Burr [facility] Adult Medicine UNK - Ambulatory Encounter Gregoria Burr [facility] UNK - Ambulatory Encounter Gregoria Burr [facility] Adult Medicine UNK - Ambulatory Encounter Gregoria Burr [facility] UNK - Ambulatory Encounter Gregoria Burr [facility] UNK - Ambulatory Encounter Gregoria Burr [facility] Adult Medicine UNK - Ambulatory Encounter Gregoria Burr [facility] Adult Medicine UNK - Ambulatory Encounter Peyton Extra Hours [facility] UNK - Ambulatory Encounter Peyton Extra Hours [facility] UNK - Ambulatory Encounter Peyton Extra Hours [facility] UNK - Ambulatory Encounter Gregoria Malave Corwin [facility] Adult Medicine UNK - Ambulatory Encounter [facility] Care Coordination Desestephaniaop Ananda Finch [facility] UNK - Ambulatory Encounter Ananda Olivia Maira [facility] Wetzel [facility] UNK - Ambulatory Encounter Gregoria Burr [facility] Adult Medicine UNK - Ambulatory Encounter Gregoria Burr [facility] Adult Medicine UNK - Ambulatory Encounter Gregoria Olivia [facility] Adult Medicine Peripheral edemaRestless leg syndromeCKDHypertensionNeuropathyEstablish care [...] Charese Corwin " temperature E&M 98.1 [degF] Charese Corwin " weight E&M 218.60 lbs. Gregoria Burr " weight in kilograms E&M 99.36 kg Gregoria Burr " method used to obtain blood pressure automatic Charese Corwin " Blood Pressure Position 01 sitting Charese Corwin " blood pressure, site #1 left arm Charese Corwin " temperature site oral Charese Corwin " height E&M 67 [in_i] Charese Corwin " height in centimeters E&M 170.18 cm Charberenice Corwin height E&M 67 [in_i] Charese Corwin " height in centimeters E&M 170.18 cm Charese Corwin " temperature site oral Charese Corwin " oxygen saturation, oximetry 98 % Charberenice Corwin " method used to obtain blood pressure automatic Charese Corwin " Blood Pressure Position 01 sitting Charese Corwin " blood pressure, site #1 left arm Charese Corwin " blood pressure, diastolic 67 mm[Hg] Charese Corwin " blood pressure, systolic 124 mm[Hg] Charese Corwin " respiratory rate E&M 18 /min Charese Corwin " pulse rate E&M 77 /min Charese Corwin " temperature E&M 98.1 [degF] Charese Corwin " weight E&M 222 lbs. Ananda Corwin " weight in kilograms E&M 100.91 kg Ananda Corwin ALLERGIES Allergy Name Onset Date Reaction Criticality Status TINDAMAX High Criticality active MORPHINE High Criticality active CODEINE High Criticality active REASON FOR REFERRAL Start Date - End Date Service - Mammogram - Screening RESULTS Date Observation Value Provider Reference Range Interpretation Location immature granulocytes, percentage of total cells, blood 0 % [facility] Not Estab. " basophil count, absolute 0.0 x10E3/uL [facility] 0.0-0.2 " Eosinophil Absolute Count 0.1 X10E3/UL [facility] 0.0-0.4 " monocyte count, blood, automated 0.3 X10E3/UL [facility] 0.1-0.9 " lymphocyte count, blood, automated 1.6 X10E3/UL [facility] 0.7-3.1 " Absolute Neutrophils 3.4 X10E3/UL [facility] 1.4-7.0 " basophils as percent of blood leukocytes 0 % [facility] Not Estab. " eosinophils as percent of blood leukocytes 2 % [facility] Not Estab. " monocytes as percent of blood leukocytes 6 % [facility] Not Estab. " lymphocytes as percent of blood leukocytes 29 % [facility] Not Estab. " neutrophils as percent of blood leukocytes 63 % [facility] Not Estab. " platelet count 232 X10E3/UL [facility] 150-450 " red blood cell distribution width 13.5 % [facility] 11.7-15.4 " mean corpuscular hemoglobin concentration, RBC 33.4 G/DL [facility] 31.5-35.7 " mean corpuscular hemoglobin, RBC 30.2 pg [facility] 26.6-33.0 " mean corpuscular volume, RBC 90 fL [facility] 79-97 " hematocrit, blood 38.3 % [facility] 34.0-46.6 " hemoglobin, blood 12.8 g/dL [facility] 11.1-15.9 " erythrocyte (RBC) count 4.24 X10E6/UL [facility] 3.77-5.28 " leukocyte count, blood 5.5 X10E3/UL [facility] 3.4-10.8 Neisseria gonorrhoeae DNA probe Negative [facility] Negative [...] Vaccine Dose Lot Number Status Shingrix IM [id number] completed Pneumovax 23 IM/SQ [id number] completed completed completed completed HISTORY OF MEDICATION USE Medication Instructions Dates Provider Comments ACYCLOVIR 5 % EXTERNAL CREAM apply to affected area twice or three times a day Gregoria MCCOYLotus Tissue Repair TEST IN VITRO STRIP use as directed Gregoria MCCOYTripShake DAKOTAH SYSTEM W/DEVICE KIT dispense 1 kit Gregoria Burr NYSTATIN 488467 UNIT/ML MOUTH/THROAT SUSPENSION 400,000 units of the [...] brother - close. Not homeless. Born in [facility]. City: [place]. State: [place]. Pt lives alone in house in [facility]. Grew up in [place] area. Not employed. Unemployed. Highest education level: some college. Unemployed since 08/2018. 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 Sex at : Female. Sexual orientation: Heterosexual. Gender identity: Female. Gender of partner(s): Male. Sexually Active: No. Single. Not sexually active. 4 dogs. Drives. [employer]. Enjoys [employer] projects, volunteering at [employer] Jeevan Eugene" drug use, illicit Never Jeevan Eugene" alcohol use, frequency holidays/special occasions only Jeevan Eugene " alcohol use Currently Jeevan Eugene " smoking status never smoker Jeevan Eugene " sex at Female Jeevan Eugene" social history - sexual practice Single. Not sexually active. Jeevan Eugene " family support , was 5 years. Single since 1979. Pt had 1 son, in 1999 (23 years old). Pt was adopted, recently discovered biological family. Adoptive mother , adoptive father in penitentiary (estranged). One adoptive brother - close. Jeevan Eugene" home/family situation, assessment Pt lives alone in house in [facility]. Grew up in [place] area. Jeevan Eugene drug use, illicit Never Osmin Hayes " alcohol use Currently Co Lorie Hayes " social history E&M . Not homeless. Born in [place]. City: [place]. Not employed. Unemployed. Sexual orientation: Heterosexual. Gender identity: Female. Sexually Active: No. Co Lorie Hayes " social history reviewed E&M reviewed today Osmin Hayes " sexual orientation Heterosexual Co Lorie Hayes " is there any chance that you could be ? No Osmin Hayes " passive cigarette smoke exposure No Co Lorie Hayes " smoking status never smoker Co Lorie Hayes " Exercise Program Referral T Osmin Hayes " Weight Management Counseling Provided T Osmin Hayes " Nutrition intervention T Co Lorie Hayes " drug use, illicit Never Charese Corwin " alcohol use Currently Charese Corwin " sexual orientation Heterosexual Charese Corwin " is there any chance that you could be ? No Charese Corwin " passive cigarette smoke exposure No Charese Corwin " smoking status never smoker Charese Corwin " social history E&M . Not homeless. Born in [facility]. City: [place]. Not employed. Unemployed. Sexual orientation: Heterosexual. Gender identity: Female. Sexually Active: No. Gregoria Burr " social history reviewed E&M reviewed today Gregoria Burr time of call 08/31/2019 4:52 PM Erica Finch time of call 08/30/2019 3:57 PM Amanda Wetzel social history E&M . Not homeless. Born in [facility]. City: [place]. Not employed. Unemployed. Sexual orientation: Heterosexual. Gender [...] STATUS Date Observation Value Provider mental status examination: recall E&M intact for recent and remote events Keely Read " assessment of judgment and insight E&M intact Keely Read " mental status examination: orientation E&M oriented to time, place, and person Keely Read " assessment of mood and affect E&M no depression, anxiety, or agitation Keely Read mental status assessment, judgment juan Eugene " insight (mental status exam) juan Eugene " Mental Status Exam: intelligence adequate fund of information, intact memory processes, oriented to person, oriented to place, oriented to time, oriented to situation, oriented to reality Jeevan Eugene " thought content (mental status exam) (E&M) issac Eugene " mental status assessment, process able to abstract, goal-directed, logical Jeevan Eugene " mental status assessment, sensorium alert, attentive, clear [...] Questionnaire - Question 1 0 Co Lorie Moxey Generalized Anxiety Disorder Questionnaire - Question 2 0 Ananda Olivia " Generalized Anxiety Disorder Questionnaire - Question 1 0 Ananda Olivia " assessment of judgment and insight E&M intact Gregoria [facility] " mental status examination: orientation E&M oriented to time, place, and person Gregoria [facility] " assessment of mood and affect E&M no depression, anxiety, or agitation Gregoria Jean Baptisteh assessment of judgment and insight E&M intact Gregoria Leno " mental status examination: orientation E&M oriented to time, place, and person Gregoria [facility] " assessment of mood and affect E&M [...] libertarian ID Sliding Fee - Cat 1 [employer] [phone] ADVANCE DIRECTIVES No Information Available TREATMENT PLAN Date Name CBC With Differential/Platelet NuSwab Vaginitis Plus (VG+) Uric Acid, Serum Pap w/HPV w rflx /45 (30+) TSH Rfx on Abnormal to Free T4 Vitamin D, 25-Hydroxy Hemoglobin A1c Lipid Panel Comp. Metabolic Panel (14) CBC With Differential/Platelet - Ofc Vst, Est Level IV Behavioral Health - Therapy Diagnostic evaluation (no medical) - 15892 IB Assessment - Mold Shifter IB Assessment - Mold Shifter Diagnostic evaluation (no medical) - 67910 EKG - 12 Leads Tracing only w/o Interpretation and report Integrated Behavioral Health Assessment (IBH) Est Patient Well Exam (40 - 64 Yrs) - 70046 New Patient Comprehensive - 42079 HISTORY OF PROCEDURES Procedure Date Procedure Name Provider Procedure Notes Status Diagnostic evaluation (no medical) - 06293 Jeevan Eugene completed [facility] Assessment - Mold Shifter Jeevan Eugene completed [facility] Assessment - Mold Shifter Jeevan Eugene completed Diagnostic evaluation (no medical) - 66218 Jeevan Eugene completed EKG - 12 Leads Tracing only w/o Interpretation and report Keely Villegas completed GOALS No Information Available HEALTH CONCERNS No Information Available
--- OUTSIDE RECORDS SUMMARY | 2019-11-21 09:32 | XMS REPORT ---
Author Author Admin, [place] Organization Unknown Address Unknown Phone Unavailable PROBLEMS [...] Provider Location Encounter Diagnosis - Ambulatory Encounter LM Care Coordination Desktop Cindy Malave [facility] Services Contact Center UNK - Ambulatory Encounter LM Care Coordination [place] [employer] [facility] Lorie Hayes [facility] Adult Medicine UNK - Ambulatory Encounter LM Care Coordination [place] [employer] [facility] Lorie Hayes [facility] Adult Medicine UNK - Ambulatory Encounter Gregoria Burr [facility] Services UNK - Ambulatory Encounter Keely Villegas [employer] [facility] Adult Medicine UNK - Ambulatory Encounter Keely Villegas [employer] [facility] Adult Medicine UNK - Ambulatory Encounter Keely Villegas [employer] [facility] Adult Medicine UNK - Ambulatory Encounter Jeevan Metcalf [facility] Behavioral Health UNK - Ambulatory Encounter Keely Ericpard [facility] Adult Medicine UNK - Ambulatory Encounter Keely Villegas Jeevan Martinez [facility] Lorie Hayes [facility] Adult Medicine Pre-op examDepression - Ambulatory Encounter Gregoria Burr [facility] Adult Medicine UNK - Ambulatory Encounter Gregoria Burr [employer] [facility] Adult Medicine UNK - Ambulatory [facility]counter [facility] - Ambulatory Encounter Gregoria Burr [facility] Adult Medicine UNK - Ambulatory Encounter Gregoria Burr [employer] [facility] Adult Medicine UNK - Ambulatory Encounter Gregoria Burr [facility] Adult Medicine UNK - Ambulatory Encounter Gregoria Malave Corwin [facility] Adult Medicine Screening, diabetes mellitusScreening for lipid disorderScreening for anemiaVaginal dischargeHSV - Ambulatory Encounter Gregoria Malave Corwin [facility] Adult Medicine Well adultScreening, cervical cancerScreening for breast cancerScreening for breast cancer - Ambulatory Encounter [facility] - Ambulatory Encounter Gregoria Burr [employer] [facility] Adult Medicine UNK - Ambulatory Encounter Gregoria Burr [facility] Adult Medicine UNK - Ambulatory Encounter Gregoria Burr [facility] Services UNK - Ambulatory Encounter Gregoria Burr [facility] Adult Medicine UNK - Ambulatory Encounter Gregoria Burr [facility] Services UNK - Ambulatory Encounter Gregoria Burr [facility] Services UNK - Ambulatory Encounter Gregoria Burr [facility] Adult Medicine UNK - Ambulatory Encounter Gregoria Burr [facility] Adult Medicine UNK - Ambulatory Encounter Peyton Extra Hours [facility] Services UNK - Ambulatory Encounter Peyton Extra Hours [facility] Services UNK - Ambulatory Encounter Peyton Extra Hours [facility] Services UNK - Ambulatory Encounter Gregoria Olivia [facility] Adult Medicine UNK - Ambulatory Encounter [facility] Care Coordination Desktop Ananda Finch [facility] Services Contact Center UNK - Ambulatory Encounter Ananda Wetzel [facility] Services UNK - Ambulatory Encounter [facility] UNK - Ambulatory Encounter Gregoria Burr [facility] Adult Medicine UNK - Ambulatory Encounter Gregoria Olivia [facility] Adult Medicine Peripheral edemaRestless leg syndromeCKDHypertensionNeuropathyEstablish care [...] pressure, site #1 right arm Co Lorie Castellanoxyasmin " oxygen saturation, oximetry 95 % Co Lorie Moxey " blood pressure, diastolic 75 mm[Hg] Co Lorie Moxey " blood pressure, systolic 118 mm[Hg] Co Lorie Moxey " pulse rate E&M 80 /min Co Lorie Moxey " temperature E&M 98.4 [degF] Co Lorie Grayxey " respiratory rate E&M 18 /min Co Lorie Moxey " weight E&M 230 lbs. Co Lorie Grayxey " weight in kilograms E&M 104.55 kg Co Lorie Grayxey " height E&M 67 [in_i] Co Lorie Castellanoxyasmin " height in centimeters E&M 170.18 cm Co Lorie Grayxey oxygen saturation, oximetry 96 % Charese Corwin " blood pressure, diastolic 83 mm[Hg] [...] in centimeters E&M 170.18 cm Charese Corwin height E&M 67 [in_i] Charese Corwin " height in centimeters E&M 170.18 cm Charese Corwin " temperature site oral Charese Corwin " oxygen saturation, oximetry 98 % Charese Corwin " method used to obtain blood [...] Charese Corwin " temperature E&M 98.1 [degF] Ananda Olivia " weight E&M 222 lbs. Ananda Olivia " weight in kilograms E&M 100.91 kg Ananda Olivia ALLERGIES Allergy Name Onset Date Reaction Criticality [...] Vaccine Dose Lot Number Status Shingrix IM [id number] completed Pneumovax 23 IM/SQ [id number] completed completed completed completed HISTORY OF MEDICATION USE Medication Instructions Dates Provider Comments ACYCLOVIR 5 % EXTERNAL CREAM apply to affected area twice or three times a day Gregoria Burr unrival DAKOTAH TEST IN VITRO STRIP use as directed Gregoria Burr unrival DAKOTAH SYSTEM W/DEVICE KIT dispense 1 kit Gregoria Burr NYSTATIN [id number] UNIT/ML MOUTH/THROAT SUSPENSION 400,000 units of the [...] Date Observation Value Provider time of call 11/15/2019 2:32 PM Cindy Singh social history reviewed E&M reviewed today Jeevan Eugene" social history E&M . , was 7 years. Single since 1979. Pt had 1 son, in 1999 (23 years old). Pt was adopted, recently discovered biological family. Adoptive mother , adoptive father in prison (estranged). One adoptive brother - close. Not homeless. Born in [facility]. City: [place]. State: [place]. Pt lives alone in house in [facility]. Grew up in [place] area. Not employed. Unemployed. Highest education level: some college. Unemployed since 08/2018. 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 Sex at : Female. Sexual orientation: Heterosexual. Gender identity: Female. Gender of partner(s): Male. Sexually Active: No. Single. Not sexually active. 4 dogs. Drives. [employer]. Enjoys craft projects, volunteering at [employer] Jeevan Eugene " drug use, illicit Never [...] family. Adoptive mother , adoptive father in prison (estranged). One adoptive brother - close. Jeevan Eugene " home/family situation, assessment Pt lives alone in house in [facility]. Grew up in [place] area. Jeevan Eugene drug use, illicit Never Co Lorie Moxey " alcohol use Currently Co Lorie Moxey " social history E&M . Not homeless. Born in [facility]. City: [place]. Not employed. Unemployed. Sexual orientation: Heterosexual. Gender identity: Female. Sexually Active: No. Co Lorie Moxey " social history reviewed E&M reviewed today Co Lorie Moxey " sexual orientation Heterosexual Co Lorie Moxey " is there any chance that you could be ? No Co Lorie Moxey " passive cigarette smoke exposure No Co Lorie Moxey " smoking status never smoker Co Lorie Moxey " Exercise Program Referral T Co Lorie Hayes " Weight Management Counseling Provided T Co Lorie Hayes " Nutrition intervention T Co Lorie Moxey " drug use, illicit Never Charese Corwin " alcohol use Currently Charese Corwin " sexual orientation Heterosexual Charese Corwin " is there any chance that you could be ? No Charese Corwin " passive cigarette smoke exposure No Charese Corwin " smoking status never smoker Charese Corwin " social history E&M . Not homeless. Born in [facility]. City: [place]. Not employed. Unemployed. Sexual orientation: Heterosexual. Gender identity: Female. Sexually Active: No. Gregoria Burr " social history reviewed E&M reviewed today Gregoria Burr time of call 08/31/2019 4:52 PM Erica Finch time of call 08/30/2019 3:57 PM Amanda Wetzel social history E&M . Not homeless. Born in [facility]. City: [place]. Not employed. Unemployed. Sexual orientation: Heterosexual. Gender identity: Female. Sexually Active: No. Gregoria Burr " social history reviewed E&M reviewed today Gregoria Burr " drug use, illicit Never Charese Corwin " alcohol use, frequency holidays/special occasions only Charese Corwin " alcohol use Currently Charese Corwin " Occupation #1 Unemployed Ananda Olivia " patient considered to be homeless No Ananda Olivia " sexual orientation Heterosexual Ananda Olivia " is there any chance that you could be ? No Ananda Olivia " passive cigarette smoke exposure No Ananda Olivia " smoking status never smoker Ananda Olivia FUNCTIONAL STATUS No Information Available MENTAL STATUS Date Observation Value Provider mental status examination: recall E&M intact for recent and remote events Keeyl Read " assessment of judgment and insight E&M intact Keely Read " mental status examination: orientation E&M oriented to time, place, and person Keely Read " assessment of mood and affect E&M no depression, anxiety, or agitation Keely Read mental status assessment, judgment good Jeevan Eugene" insight (mental status exam) good Jeevan Eugene " Mental Status Exam: intelligence adequate fund of information, intact memory processes, oriented to person, oriented to place, oriented to time, oriented to situation, oriented to reality Jeevan Eugene" thought content (mental status exam) (E&M) lucid Jeevan Eugene" mental status assessment, process able to abstract, goal-directed, logical Jeevan Eugene " mental status assessment, sensorium alert, attentive, clear Jeevan Eugene" affect (mental status exam) congruent, euthymic, normal intensity, normal range Jeevan Eugene" mood (mental status exam) pleasant, depressed Jeevan Eugene" mental status assessment, speech activity normal flow, normal pace, normal pressure, normal rate, normal tone, normal volume, spontaneous Jeevan Eugene" mental status assessment, motor activity normal gait, [...] Questionnaire - Question 2 0 Co Lorie Freddy " Generalized Anxiety Disorder Questionnaire - Question 1 0 Co Lorie Freddy Generalized Anxiety Disorder Questionnaire - Question 2 0 Ananda Olivia " Generalized Anxiety Disorder Questionnaire - Question 1 0 Ananda Olivia " assessment of judgment and insight E&M intact Gregoria Burr " mental status examination: orientation E&M oriented to time, place, and person Gregoria Burr " assessment of mood and affect E&M no depression, anxiety, or agitation Gergoria Burr assessment of judgment and insight E&M [...] name Policy type / Coverage type Covered constitution party ID Sliding Fee - Cat 1 [employer] insurance [employer] [id number] ADVANCE DIRECTIVES No Information Available TREATMENT PLAN Date Name CBC With Differential/Platelet NuSwab Vaginitis Plus (VG+) Uric Acid, Serum Pap w/HPV w rflx 16/18/45 (30+) TSH Rfx on Abnormal to Free T4 Vitamin D, 25-Hydroxy Hemoglobin A1c Lipid Panel Comp. Metabolic Panel (14) CBC With Differential/Platelet - Ofc Vst, Est Level IV Behavioral Health - Therapy Diagnostic evaluation (no medical) - 55807 IB Assessment - Founder And Ceo IB Assessment - Founder And Ceo Diagnostic evaluation (no medical) - 06261 EKG - 12 Leads Tracing only w/o Interpretation and report Integrated Behavioral Health Assessment (IBH) Est Patient Well Exam (40 - 64 Yrs) - 90656 New Patient Comprehensive - [id number] HISTORY OF PROCEDURES Procedure Date Procedure Name Provider Procedure Notes Status Diagnostic evaluation (no medical) - 69687 Jeevan Eugene completed [facility] Assessment - Founder And Ceo Jeevan Eugene completed [facility] Assessment - Founder And Ceo Jeevan Eugene completed Diagnostic evaluation (no medical) - 09377 Jeevan Eugene completed EKG - 12 Leads Tracing only w/o Interpretation and report Keely Ericpard completed GOALS No Information Available HEALTH CONCERNS No Information Available
--- OUTSIDE RECORDS SUMMARY | 2019-11-21 09:32 | XMS REPORT ---
Author Author Admin, [place] Organization Unknown Address Unknown Phone Unavailable PROBLEMS [...] Location Encounter Diagnosis - Ambulatory Encounter Keely Ericpard [facility] Adult Medicine UNK - Ambulatory Encounter Keely Ericpard [facility] Adult Medicine UNK - Ambulatory Encounter Jeevan Metcalf [facility] Behavioral Health UNK - Ambulatory Encounter Keely Ericpard [facility] Adult Medicine UNK - Ambulatory Encounter Keely Villegas Jeevan Hayes [facility] Adult Medicine Pre-op examDepression - Ambulatory Encounter Gregoria Burr [facility] Adult Medicine UNK - Ambulatory Encounter [facility] - Ambulatory Encounter Gregoria Campbell [facility] Adult Medicine UNK - Ambulatory Encounter Gregoria Burr [facility] Adult Medicine UNK - Ambulatory Encounter Gregoria Burr [facility] Adult Medicine UNK - Ambulatory Encounter Gregoria Burr [facility] Adult Medicine UNK - Ambulatory Encounter Gregoria Olivia [facility] Adult Medicine Screening, diabetes mellitusScreening for lipid disorderScreening for anemiaVaginal dischargeHSV - Ambulatory Encounter Gregoria Malave Corwin [facility] Adult Medicine Well adultScreening, cervical cancerScreening for breast cancerScreening for breast cancer - Ambulatory Encounter [facility] - [facility] - Ambulatory Encounter Gregoria Burr [facility] Adult Medicine UNK - Ambulatory Encounter Gregoria Burr [facility] Services UNK - Ambulatory Encounter Gregoria Burr [facility] Adult Medicine UNK - Ambulatory Encounter Gregoria Burr [facility] Services UNK - Ambulatory Encounter Gregoria Burr [facility] Services UNK - Ambulatory Encounter Gregoria Burr [facility] Adult Medicine UNK - Ambulatory Encounter Gregoria Burr [facility] Adult Medicine UNK - Ambulatory Encounter Peyton Extra Hours [facility] Services UNK - Ambulatory Encounter Pey[place] Extra Hours [facility] Services UNK - Ambulatory Encounter Pey[place] Extra Hours [facility] Services UNK - Ambulatory Encounter Gregoria Malave Corwin [facility] Adult Medicine UNK - Ambulatory Encounter [facility] Care Coordination [place] Olivia Ericakimmy Finch [facility] Services Contact Center UNK - Ambulatory Encounter Ananda Wetzel [facility] Services UNK - Ambulatory Encounter Gregoria Burr [employer] [facility] Adult Medicine UNK - Ambulatory Encounter Gregoria Burr [facility] Adult Medicine UNK - Ambulatory Encounter Gregoria Olivia [facility] Adult Medicine Peripheral edemaRestless leg syndromeCKDHypertensionNeuropathyEstablish care [...] Lorie Hayes oxygen saturation, oximetry 96 % Charese Corwin [...] Charese Corwin " weight E&M 222 lbs. Charberenice Corwin " weight in kilograms E&M 100.91 kg Charberenice Corwin ALLERGIES Allergy Name Onset Date Reaction [...] Vaccine Dose Lot Number Status Shingrix IM [id number] completed Pneumovax 23 IM/SQ [id number] completed completed completed completed HISTORY OF MEDICATION USE Medication Instructions Dates Provider Comments ACYCLOVIR 5 % EXTERNAL CREAM apply to affected area twice or three times a day Gregoria [employer] PRECISION DAKOTAH TEST IN VITRO STRIP use as directed Gregoria [employer] PRECISION DAKOTAH SYSTEM W/DEVICE KIT dispense 1 kit Gregoria Burr NYSTATIN [id number] UNIT/ML MOUTH/THROAT SUSPENSION 400,000 units of the [...] 200 MG ORAL TABLET 1 tablet BID Grgeoria Burr FLUTICASONE PROPIONATE 50 MCG/ACT NASAL SUSPENSION [...] TABLET 1 by mouth every day Gregoria Leno SOCIAL HISTORY Date Observation Value Provider social history reviewed E&M reviewed today Jeevan Eugene" social history E&M . , was 7 years. Single since 1979. Pt had 1 son, in 1999 (23 years old). Pt was adopted, recently discovered biological family. Adoptive mother , adoptive father in longterm (estranged). One adoptive brother - close. Not homeless. Born in [facility]. City: [place]. State: [place]. Pt lives alone in house in [facility]. Grew up in [place] area. Not employed. Unemployed. Highest education level: some college. Unemployed since 08/2018. 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 Sex at : Female. Sexual orientation: Heterosexual. Gender identity: Female. Gender of partner(s): Male. Sexually Active: No. Single. Not sexually active. 4 dogs. Drives. [place]. Enjoys [employer] projects, volunteering at [employer] Jeevan Eugene" drug use, illicit Never Jeevan Eugene " [...] family. Adoptive mother , adoptive father in longterm (estranged). One adoptive brother - close. Jeevan Eugene" home/family situation, assessment Pt lives alone in house in [facility]. Grew up in [place] area. Jeevan Eugene drug use, illicit Never Co Lorie Freddy " alcohol use Currently Co Lorie Moxey " social history E&M . Not homeless. Born in [place]. City: [place]. Not employed. Unemployed. Sexual orientation: Heterosexual. Gender [...] Lorie Moxey " Exercise Program Referral T Osmin Hayes [...] history E&M . Not homeless. Born in [facility]. City: [place]. Not employed. Unemployed. Sexual orientation: Heterosexual. Gender identity: Female. Sexually Active: No. Gregoria Burr " social history reviewed E&M reviewed today Gregoria Burr time of call 08/31/2019 4:52 PM Erica Finch time of call 08/30/2019 3:57 PM Amanda Wetzel social history E&M . Not homeless. Born in [facility]. City: [place]. Not employed. Unemployed. Sexual orientation: Heterosexual. Gender [...] intact for recent and remote events Keely Ericpard " assessment of judgment and insight E&M intact Keely Read " mental status examination: orientation E&M oriented to time, place, and person Keely Ericpard " assessment of mood and affect E&M no depression, anxiety, or agitation Keely Ericpard mental status assessment, judgment juan Eugene " insight (mental status exam) juan Eugene " Mental Status Exam: intelligence adequate fund of information, intact memory processes, oriented to person, oriented to place, oriented to time, oriented to situation, oriented to reality Jeevan Eugene" thought content (mental status exam) (E&M) lucid Jeevan Eugene " mental status assessment, process able [...] motor activity normal gait, normal posture Jeevan Eugene" behavior (mental status exam) appropriate, candid, cooperative, good eye contact, polite, responsive Jeevan Eugene" mental appearance (mental status exam) adequate hygiene, appropriate dress, looks like stated age, neat Jeevan Eugene " delusion No Jeevan Eugene " hallucinations No Jeevan Eugene" If any problems checked, how difficult have [...] democrat ID Sliding Fee - Cat 1 [employer] insurance [email or web address] [id number] ADVANCE DIRECTIVES No Information Available TREATMENT PLAN Date Name CBC With Differential/Platelet NuSwab Vaginitis Plus (VG+) Uric Acid, Serum Pap w/HPV w rflx (30+) TSH Rfx on Abnormal to Free T4 Vitamin D, 25-Hydroxy Hemoglobin A1c Lipid Panel Comp. Metabolic Panel (14) CBC With Differential/Platelet - Ofc Vst, Est Level IV Behavioral Health - Therapy Diagnostic evaluation (no medical) - 34722 IB Assessment - Nipping Machine Operator IB Assessment - Nipping Machine Operator Diagnostic evaluation (no medical) - 10260 EKG - 12 Leads Tracing only w/o Interpretation and report Integrated Behavioral Health Assessment (IBH) Est Patient Well Exam (40 - 64 Yrs) - 99484 New Patient Comprehensive - [id number] HISTORY OF PROCEDURES Procedure Date Procedure Name Provider Procedure Notes Status Diagnostic evaluation (no medical) - 63577 Jeevan Eugene completed IB Assessment - Nipping Machine Operator Jeevan Eugene completed IB Assessment - Nipping Machine Operator Jeevan Eugene completed Diagnostic evaluation (no medical) - 38414 Jeevan Eugene completed EKG - 12 Leads Tracing only w/o Interpretation and report Keely Villegas completed GOALS No Information Available HEALTH CONCERNS No Information Available
--- OUTSIDE RECORDS SUMMARY | 2019-11-21 09:32 | XMS REPORT ---
Author Author Admin, Cecilia Organization Unknown Address Unknown Phone Unavailable PROBLEMS [...] active Gregoria Burr Rheumatoid arthritis, chronic active rGegoria Burr Establish care or get acquainted visit active Gergoria Burr Neuropathy active Gregoria Burr Hypertension active Gregoria Burr CKD active Gregoria Burr Restless leg syndrome completed - Gregoria Burr Peripheral edema active Gregoria Burr ENCOUNTERS Date Type Provider Location Encounter Diagnosis - Ambulatory Encounter [facility] - Ambulatory Encounter [facility] - Ambulatory Encounter Keely Villegas [facility] Adult [facility] UNK - Ambulatory Encounter Jeevan Metcalf [facility] Behavioral Health UNK - Ambulatory Encounter Keely Ericpard [facility] Adult Medicine UNK - Ambulatory Encounter Keely Villegas Jeevan Hayes [facility] Adult Medicine Pre-op examDepression - Ambulatory Encounter Gregoria Burr [facility] Adult Medicine UNK - Ambulatory Encounter Gregoria Burr [employer] Adult Medicine UNK - Ambulatory Encounter Gregoria Campbell [facility]Adherence [facility] Adult Medicine UNK - Ambulatory Encounter Gregoria Burr [facility] Adult Medicine UNK - Ambulatory Encounter Gregoria Burr [facility] Adult Medicine UNK - Ambulatory Encounter Gregoria Burr [facility] Adult Medicine UNK - Ambulatory Encounter Gregoria Malave Corwin [facility] Adult Medicine Screening, diabetes mellitusScreening for lipid disorderScreening for anemiaVaginal dischargeHSV - Ambulatory Encounter Gregoria Malave Corwin [facility] Adult Medicine Well adultScreening, cervical cancerScreening for breast cancerScreening for breast cancer - Ambulatory Encounter Gregoria Burr [facility] Adult Medicine UNK - Ambulatory Encounter Gregoria Burr [facility] Adult Medicine UNK - Ambulatory Encounter Gregoria Burr [facility] Adult Medicine UNK - Ambulatory Encounter Gregoria Burr [facility] UNK - Ambulatory Encounter Gregoria Burr [facility] Adult Medicine UNK - Ambulatory Encounter Gregoria Burr [facility] UNK - Ambulatory Encounter Gregoria Burr [facility] UNK - Ambulatory Encounter Gregoria Burr [facility] Adult Medicine UNK - Ambulatory Encounter Gregoria Burr [facility] Adult Medicine UNK - Ambulatory Encounter Peyton Extra Hours [facility] UNK - Ambulatory Encounter Peyton Extra Hours [facility] UNK - Ambulatory Encounter Peyton Extra Hours [facility] UNK - Ambulatory Encounter Gregoria Olivia [facility] Adult Medicine UNK - Ambulatory Encounter [facility] Care Coordination Hui Finch [facility] Contact Center UNK - Ambulatory Encounter Ananda Olivia Maira Helmradha Lobomat[facility]w Wetzel [facility] UNK - Ambulatory Encounter Gregoria Burr [employer] [facility] Adult Medicine UNK - Ambulatory Encounter Gregoria Burr [facility] Adult Medicine UNK - Ambulatory Encounter Gregoria Malave Corwin [facility] Adult Medicine Peripheral edemaRestless leg syndromeCKDHypertensionNeuropathyEstablish care [...] Charese Corwin " weight E&M 222 lbs. Charese Corwin " weight in kilograms E&M 100.91 kg Charese Corwin ALLERGIES Allergy Name Onset Date Reaction [...] Vaccine Dose Lot Number Status Shingrix IM [id number] completed Pneumovax 23 IM/SQ [id number] completed completed completed completed HISTORY OF MEDICATION USE Medication Instructions Dates Provider Comments ACYCLOVIR 5 % EXTERNAL CREAM apply to affected area twice or three times a day Gregoria [facility] DAKOTAH TEST IN VITRO STRIP use as directed Gregoria [facility] DAKOTAH SYSTEM W/DEVICE KIT dispense 1 kit Gregoria Leno NYSTATIN [id number] UNIT/ML MOUTH/THROAT SUSPENSION 400,000 units of the [...] family. Adoptive mother , adoptive father in senior living (estranged). One adoptive brother - close. Not homeless. Born in [facility]. City: [place]. State: [place]. Pt lives alone in house in [facility]. Grew up in [place] area. Not employed. Unemployed. Highest education level: some college. Unemployed since 08/2018. 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 Sex at : Female. Sexual orientation: Heterosexual. Gender identity: Female. Gender of partner(s): Male. Sexually Active: No. Single. Not sexually active. 4 dogs. Drives. [employer]. Enjoys [employer] projects, volunteering at [employer] Jeevan Eugene " drug use, illicit Never [...] family. Adoptive mother , adoptive father in senior living (estranged). One adoptive brother - close. Jeevan Eugene" home/family situation, assessment Pt lives alone in house in [facility]. Grew up in [place] area. Jeevan Eugene drug use, illicit Never Co Lorie Hayes " alcohol use Currently Co Lorie Moxey " social history E&M . Not homeless. Born in [place]. City: [place]. Not employed. Unemployed. Sexual orientation: Heterosexual. Gender identity: Female. Sexually Active: No. Co Lorie Moxey " social history reviewed E&M reviewed today Co Lorie Moxey " sexual orientation Heterosexual Co Lorie Moxey " is there any chance that you could be ? No Co Lorie Castellanobrandi " passive cigarette smoke exposure No Co Lorie Castellanoxyasmin " smoking status never smoker Co Lorietaiwo Hayes " Exercise Program Referral T Co Lorie Hayes " Weight Management Counseling Provided T Co Lorie Hayes " Nutrition intervention T Osmin Lorie Hayes " drug use, illicit Never Charese Corwin " alcohol use Currently Charese Corwin " sexual orientation Heterosexual Charese Corwin " is there any chance that you could be ? No Charese Corwin " passive cigarette smoke exposure No Charese Corwin " smoking status never smoker Charese Corwin " social history E&M . Not homeless. Born in [facility]. City: [place]. Not employed. Unemployed. Sexual orientation: Heterosexual. Gender identity: Female. Sexually Active: No. Gregoria Burr " social history reviewed E&M reviewed today Gregoria Burr time of call 08/31/2019 4:52 PM Erica Finch time of call 08/30/2019 3:57 PM Amanda Wetzel social history E&M . Not homeless. Born in [facility]. City: [place]. Not employed. Unemployed. Sexual orientation: Heterosexual. Gender [...] E&M no depression, anxiety, or agitation Keely Villegas mental status assessment, judgment juan Eugene " insight (mental status exam) good Jeevan Eugene" Mental Status Exam: intelligence adequate fund of [...] libertarian ID Sliding Fee - Cat 1 [employer] [id number] ADVANCE DIRECTIVES No Information Available TREATMENT PLAN Date Name CBC With Differential/Platelet NuSwab Vaginitis Plus (VG+) Uric Acid, Serum Pap w/HPV w rflx (30+) TSH Rfx on Abnormal to Free T4 Vitamin D, 25-Hydroxy Hemoglobin A1c Lipid Panel Comp. Metabolic Panel (14) CBC With Differential/Platelet - Ofc Vst, Est Level IV Behavioral Health - Therapy Diagnostic evaluation (no medical) - 93812 IB Assessment - Drafter Chief Design IB Assessment - Drafter Chief Design Diagnostic evaluation (no medical) - 24862 EKG - 12 Leads Tracing only w/o Interpretation and report Integrated Behavioral Health Assessment (IBH) Est Patient Well Exam (40 - 64 Yrs) - 41338 New Patient Comprehensive - 65719 HISTORY OF PROCEDURES Procedure Date Procedure Name Provider Procedure Notes Status Diagnostic evaluation (no medical) - 74518 Jeevan Eugene completed IB Assessment - Drafter Chief Design Jeevan Eugene completed IB Assessment - Drafter Chief Design Jeevan Eugene completed Diagnostic evaluation (no medical) - 06809 Jeevan Eugene completed EKG - 12 Leads Tracing only w/o Interpretation and report Keely Villegas completed GOALS No Information Available HEALTH CONCERNS No Information Available
--- OUTSIDE RECORDS SUMMARY | 2019-11-21 09:33 | XMS REPORT ---
Author Author Admin, [place] Organization Unknown Address Unknown Phone Unavailable PROBLEMS [...] Provider Location Encounter Diagnosis - Ambulatory Encounter Aleena Bhakta [facility] Adult Medicine UNK - Ambulatory Encounter LM Care Coordination Desktop Cindy Malave [facility] UNK - Ambulatory Encounter LM Care Coordination Desktop [employer]Logic Co Lorie Hayes [facility] Adult Medicine UNK - Ambulatory Encounter LM Care Coordination Desktop [employer]Log[employer] Co Lorie Hayes [facility] Adult Medicine UNK - Ambulatory Encounter Gregoria Burr [facility] Services UNK - Ambulatory Encounter Keely Villegas [employer] [facility] Adult Medicine UNK - Ambulatory Encounter Keely Villegas [employer] [facility] Adult Medicine UNK - Ambulatory Encounter Keely Villegas [employer] [facility] Adult Medicine UNK - Ambulatory Encounter Jeevan Metcalf [facility] Behavioral Health UNK - Ambulatory Encounter Keely Villegas [facility] Adult Medicine UNK - Ambulatory Encounter Keely Villegas Jeevan Martinez Co Lorie Hayes [facility] Adult Medicine Pre-op examDepression - Ambulatory Encounter Gregoria Burr [facility] Adult Medicine UNK - Ambulatory Encounter Gregoria Burr [employer] [facility] Adult Medicine UNK - Ambulatory Encounter Gregoria Adames [facility] Adult Medicine UNK - Ambulatory Encounter Gregoria Burr [facility] Adult Medicine UNK - Ambulatory [facility] - Ambulatory Encounter Gregoria Burr [facility] Adult Medicine UNK - Ambulatory Encounter Gregoria Malave Corwin [facility] Adult Medicine Screening, diabetes mellitusScreening for lipid disorderScreening for anemiaVaginal dischargeHSV - Ambulatory Encounter Gregoria Malave Corwin [facility] Adult Medicine Well adultScreening, cervical cancerScreening for breast cancerScreening for breast cancer - Ambulatory Encounter [facility] - [facility]ulatory [facility] - Ambulatory Encounter Gregoria Burr [facility] Adult Medicine UNK - Ambulatory Encounter Gregoria Burr [facility] Services UNK - Ambulatory Encounter Gregoria Burr [facility] Adult Medicine UNK - Ambulatory Encounter Gregoria Burr [facility] UNK - Ambulatory Encounter Gregoria Burr [facility] Services UNK - Ambulatory Encounter Gregoria Burr [facility] Adult Medicine UNK - Ambulatory Encounter Gregoria Burr [facility] Adult Medicine UNK - Ambulatory Encounter Peyton Extra Hours [facility] Services UNK - Ambulatory Encounter Peyton Extra Hours [facility] Services UNK - Ambulatory Encounter Peyton Extra Hours [facility] Services UNK - Ambulatory Encounter Gregoria Olivia [facility] Adult Medicine UNK - Ambulatory Encounter [facility] Care Coordination Desktop Ananda Finch [facility] Services Contact Center UNK - Ambulatory Encounter Ananda Wetzel [facility] UNK - Ambulatory Encounter [facility] Adult Medicine UNK - Ambulatory Encounter Gregoria Burr [facility] Adult Medicine UNK - Ambulatory Encounter Gregoria Olivia [facility] Adult Medicine Peripheral edemaRestless leg syndromeCKDHypertensionNeuropathyEstablish care or get acquainted visitRheumatoid arthritis, chronicRestless leg syndromeGoutHypothyroidAcid refluxNarcolepsySleep apneaGastric bypassLow potassium levelFoot pain, chronicANA positiveHLA B27 antigen positiveVitamin D deficiencyAsthmaHyperlipidemiaHypertensionOsteopeniaDJD, lumbar spineBitten by dog, subsequent encounterhospital follow upObesityBMI 34.0-34.9Chronic cough VITAL SIGNS Date Observation Value Provider method used to obtain blood pressure automatic Co Lorie Grayxey " temperature site oral Co Lorie Moxey " Blood Pressure Position 01 sitting Co Lorie Moxey " blood pressure, site #1 right arm Co Lorie Moxey " oxygen saturation, oximetry 95 % Co Lorie Moxey " blood pressure, diastolic 75 mm[Hg] Co Lorie Moxey " blood pressure, systolic 118 mm[Hg] Co Lorie Moxey " pulse rate E&M 80 /min Co Lorie Moxey " temperature E&M 98.4 [degF] Co Lorie Moxey " respiratory rate E&M 18 /min Co Lorie Moxey " weight E&M 230 lbs. Co Lorie Moxey " weight in kilograms E&M 104.55 kg Co Lorie Moxey " height E&M 67 [in_i] Co Lorie Moxey " height in centimeters E&M 170.18 cm Co Lorie Moxey oxygen saturation, oximetry 96 % Charese Corwin " blood pressure, diastolic 83 mm[Hg] Charese Corwin " blood pressure, systolic 118 mm[Hg] Charese Corwin " respiratory rate E&M 18 /min Charese Corwin " pulse rate E&M 87 /min Charese Corwin " temperature E&M 98.1 [degF] Charese Corwin " weight E&M 218.60 lbs. Gregoriaparrish Burr " weight in kilograms E&M 99.36 [...] " blood pressure, diastolic 67 mm[Hg] Charese Coriwn " blood pressure, systolic 124 mm[Hg] Charese Corwin " respiratory rate E&M 18 /min Ananda Olivia " pulse rate E&M 77 /min Ananda Olivia " temperature E&M 98.1 [degF] Ananda Olivia [...] Vaccine Dose Lot Number Status Shingrix IM [id number] completed Pneumovax 23 IM/SQ [id number] completed completed completed completed HISTORY OF MEDICATION USE Medication Instructions Dates Provider Comments ACYCLOVIR 5 % EXTERNAL CREAM apply to affected area twice or three times a day Gregoria Burr [employer] DAKOTAH TEST IN VITRO STRIP use as directed Gregoria Burr [employer] DAKOTAH SYSTEM W/DEVICE KIT dispense 1 kit Gregoria Burr NYSTATIN [id number] UNIT/ML MOUTH/THROAT SUSPENSION 400,000 units of the [...] Date Observation Value Provider time of call 11/16/2019 2:24 PM Aleena Bhakta time of call 11/15/2019 2:32 PM Cindy Singh social history reviewed E&M reviewed today Jeevan Eugene" social history E&M . , was 7 years. Single since 1979. Pt had 1 son, in 1999 (23 years old). Pt was adopted, recently discovered biological family. Adoptive mother , adoptive father in skilled nursing (estranged). One adoptive brother - close. Not homeless. Born in [facility]. City: [place]. State: [place]. Pt lives alone in house in [facility]. Grew up in [place] [facility]. Not employed. Unemployed. Highest education level: some college. Unemployed since 08/2018. 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 Sex at : Female. Sexual orientation: Heterosexual. Gender identity: Female. Gender of partner(s): Male. Sexually Active: No. Single. Not sexually active. 4 dogs. Drives. [place]. Enjoys craft projects, volunteering at [employer] Jeevan Eugene " drug use, illicit Never [...] family. Adoptive mother , adoptive father in skilled nursing (estranged). One adoptive brother - close. Jeevan Eugene " home/family situation, assessment Pt lives alone in house in [facility]. Grew up in [facility]. Jeevan Eugene drug use, illicit Never Co Lorie Moxey " alcohol use Currently Co Lorie Moxey " social history E&M . Not homeless. Born in [facility]. City: [place]. Not employed. Unemployed. Sexual orientation: Heterosexual. Gender [...] " Exercise Program Referral T Co Lorie Moxey " Weight Management Counseling Provided T Co Lorie Grayxey " Nutrition intervention T Co Lorie Moxey " drug use, illicit Never Charese Corwin " alcohol use Currently Charese Corwin " sexual orientation Heterosexual Charese Corwin " is there any chance that you could be ? No Charese Corwin " passive cigarette smoke exposure No Charese Corwin " smoking status never smoker Charese Corwin " social history E&M . Not homeless. Born in [facility]. City: [place]. Not employed. Unemployed. Sexual orientation: Heterosexual. Gender identity: Female. Sexually Active: No. Gregoria Burr " social history reviewed E&M reviewed today Gregoria Burr time of call 08/31/2019 4:52 PM Erica Finch time of call 08/30/2019 3:57 PM Amanda Wetzel social history E&M . Not homeless. Born in [facility]. City: [place]. Not employed. Unemployed. Sexual orientation: Heterosexual. Gender identity: Female. Sexually Active: No. Gregoria Burr " social history reviewed E&M reviewed today Gregoria Burr " drug use, illicit Never Ananda Olivia " alcohol use, frequency holidays/special occasions only Ananda Olivia " alcohol use Currently Ananda Olivia " Occupation #1 Unemployed Ananda Olivia " patient considered to be homeless No Ananda Olivia " sexual orientation Heterosexual Ananda Olivia " is there any chance that you could be ? No Ananda Olivia " passive cigarette smoke exposure No Ananda Olivia " smoking status never smoker Ananda Corwin [...] agitation Keely Ericpard mental status assessment, judgment good Jeevan Eugene" insight (mental status exam) good Jeevan Eugene" [...] Questionnaire - Question 2 0 Co Lorie Castellanoxyasmin " Generalized Anxiety Disorder Questionnaire - Question 1 0 Co Lorie Moxey Generalized Anxiety Disorder Questionnaire - Question 2 0 Ananda Olivia " Generalized Anxiety Disorder Questionnaire - Question 1 0 Chelsyberenice Olivia " assessment of judgment and insight E&M intact Gregoria Jean Baptisteh " mental status examination: orientation E&M oriented to time, place, and person Gregoria Leno " assessment of mood and affect E&M no depression, anxiety, or agitation Gregoria Leno assessment of judgment and insight E&M intact Gregoria Jean Baptisteh " mental status examination: orientation E&M oriented to time, place, and person Gregoria Leno " assessment of mood and affect E&M no depression, anxiety, or agitation Gregoria Leno " Generalized Anxiety Disorder Questionnaire - Question 1 3 Ananda Olivia " Generalized Anxiety Disorder Questionnaire - Question 2 3 Ananda Olivia MEDICAL EQUIPMENT No Information Available FAMILY HISTORY No Information Available INSURANCE PROVIDERS Payer name Policy type / Coverage type Covered green party ID Sliding Fee - Cat 1 [employer] [id number] ADVANCE DIRECTIVES No Information Available TREATMENT PLAN Date Name CBC With Differential/Platelet NuSwab Vaginitis Plus (VG+) Uric Acid, Serum Pap w/HPV w rflx (30+) TSH Rfx on Abnormal to Free T4 Vitamin D, 25-Hydroxy Hemoglobin A1c Lipid Panel Comp. Metabolic Panel (14) CBC With Differential/Platelet - Ofc Vst, Est Level IV Behavioral Health - Therapy Diagnostic evaluation (no medical) - 89993 [facility] Assessment - Buyer Internship [facility] Assessment - Buyer Internship Diagnostic evaluation (no medical) - 47616 EKG - 12 Leads Tracing only w/o Interpretation and report Integrated Behavioral Health Assessment (IBH) Est Patient Well Exam (40 - 64 Yrs) - 65327 New Patient Comprehensive - 82443 HISTORY OF PROCEDURES Procedure Date Procedure Name Provider Procedure Notes Status Diagnostic evaluation (no medical) - 72450 Jeevan Eugene completed [facility] Assessment - Buyer Internship Jeevan Eugene completed [facility] Assessment - Buyer Internship Jeevan Eugene completed Diagnostic evaluation (no medical) - 25679 Jeevan Eugene completed EKG - 12 Leads Tracing only w/o Interpretation and report Keely Ericpard completed GOALS No Information Available HEALTH CONCERNS No Information Available
[2019-11-21 11:45] VITALS: BP 111/54
== END | disposition home or self-care (01) ==
LOC: OR 09:27
PROVIDERS: ATTEND Ophthalmology
DX: H25.12 Age-related nuclear cataract, left eye (principal); I10 Essential (primary) hypertension; E78.5 Hyperlipidemia, unspecified; E03.9 Hypothyroidism, unspecified; M10.9 Gout, unspecified; M06.9 Rheumatoid arthritis, unspecified; G47.33 Obstructive sleep apnea (adult) (pediatric); Z86.19 Personal history of other infectious and parasitic diseases
CPT/HCPCS: 66984; J2250; J3010; V2787

== ENCOUNTER 2021-02-01 15:30 | Emergency (ER) | payer OTHER ==
[~2021-02-01] VITALS: Ht 170.2 cm; Wt 101.2 kg
[~2021-02-01 15:30] MED LIST changes: -FENTANYL CITRATE/PF 100MCG/2 ML INJ ONE; -MIDAZOLAM HCL 2 MG/2 ML VIAL ONE; -OR PHACO EYE KIT ONE; -PREOP PHACO EYE KIT ONE
[2021-02-01] MEDS ORDERED: SODIUM CHLORIDE 0.9% 500ML 500 ML IV ONE (17:15)
[2021-02-01] MEDS ORDERED: SODIUM CHLORIDE 0.9% 1000ML 1,000 ML IV SCH (17:30)
[2021-02-01] MEDS ORDERED: SODIUM CHLORIDE 0.9% 50ML 50 ML ONE (17:53)
[2021-02-01] MEDS ORDERED: IOPAMIDOL 370 MG/ML 200 ML INFUS..BTL INJ ONE (17:53)
[2021-02-01] MEDS ORDERED: SODIUM CHLORIDE 0.9% 1000ML 1,000 ML ONE (17:54)
[2021-02-01] MEDS ORDERED: HYDRALAZINE HCL 20 MG/ML VIAL IV STA (19:14)
[2021-02-01] MEDS ORDERED: ENOXAPARIN SODIUM INJ 100 MG/ML SYR SC STA (19:47)
[2021-02-01] MEDS ORDERED: ENOXAPARIN SODIUM INJ 100 MG/ML SYR SC ONE (20:26)
== END 2021-02-01 20:25 | disposition other institution (70) ==
LOC: FSED 15:35
DX: U07.1 COVID-19 (principal); I26.99 Other pulmonary embolism without acute cor pulmonale; R07.9 Chest pain, unspecified; R06.02 Shortness of breath; R94.31 Abnormal electrocardiogram [ECG] [EKG]; R73.9 Hyperglycemia, unspecified; E03.9 Hypothyroidism, unspecified; F41.9 Anxiety disorder, unspecified; F32.9 Major depressive disorder, single episode, unspecified; Z98.84 Bariatric surgery status
CPT/HCPCS: 71260; 80053; 81003; 82553; 84484; 85025; 85379; 93005; 99284; J1650; J7030; Q9967; U0002

== ENCOUNTER 2022-10-06 16:31 | Emergency (ER) | payer MEDICARE ==
[~2022-10-06] VITALS: Ht 170.2 cm; Wt 104.3 kg
[2022-10-06] MEDS ORDERED: SODIUM CHLORIDE 0.9% 100 ML ONE (17:28)
[2022-10-06] MEDS ORDERED: IOPAMIDOL 370 MG/ML 100 ML INFUS..BTL INJ ONE (17:29)
[2022-10-06] MEDS ORDERED: ENOXAPARIN SODIUM INJ 100 MG/ML SYR SC STA (18:39)
[2022-10-06] MEDS ORDERED: SODIUM CHLORIDE 0.9% 1000ML 1,000 ML IV ONE (18:45)
[2022-10-06] MEDS ORDERED: ENOXAPARIN SODIUM INJ 100 MG/ML SYR SC ONE (19:02)
[2022-10-06] MEDS ORDERED: FENTANYL CITRATE/PF 100MCG/2 ML INJ IV ONE (22:30)
[2022-10-06] MEDS ORDERED: FENTANYL CITRATE/PF 100MCG/2 ML INJ ONE (22:35)
== END 2022-10-06 23:35 | disposition other institution (70) ==
LOC: FSED 17:12 → ER 23:35
DX: R06.00 Dyspnea, unspecified (principal); I26.99 Other pulmonary embolism without acute cor pulmonale; I82.431 Acute embolism and thrombosis of right popliteal vein; M79.661 Pain in right lower leg; K44.9 Diaphragmatic hernia without obstruction or gangrene; E78.5 Hyperlipidemia, unspecified; E03.9 Hypothyroidism, unspecified; G47.30 Sleep apnea, unspecified; G47.419 Narcolepsy without cataplexy; Z20.822 Contact with and (suspected) exposure to COVID-19; Z98.84 Bariatric surgery status
CPT/HCPCS: 71260; 80053; 82553; 84484; 85025; 93005; 93970; 99284; J1650; J3010; J7050; Q9967; U0002

== ENCOUNTER → 2022-12-23 | Outpatient (CLI) | payer MEDICARE ==
[~2022-12-23] MED LIST changes: +IOPAMIDOL 370 MG/ML 100 ML INFUS..BTL INJ ONE; +SODIUM CHLORIDE 0.9% 100 ML ONE; +SODIUM CHLORIDE 0.9% 500ML 500 ML ONE
[2022-12-23 08:47] LABS: CREATININE, SERUM 1.05 mg/dL (0.57-1.11)
== END ==
LOC: CT 07:38
PROVIDERS: ATTEND Internal Medicine Cardiovascular Disease
DX: R42 Dizziness and giddiness (principal)
CPT/HCPCS: 36415; 70496; 70498; 82565; 84520; 96360; J7040; J7050; Q9967